=== PATIENT | female | born 1945 | race Caucasian/White ===

== ENCOUNTER → 2016-09-02 | Outpatient (CLI) | payer OTHER ==
[~2016-09-02] MED LIST: ASCA500 PO; B-CO-25 PO; CHOL100010 PO; IBUP-1427 PO; LEVO75TA5 PO; LISI-787 PO; LUTE15CA PO; MULT-506 PO; SIMV40TA2 PO; VITA400C15 PO
--- NOTE | 2016-09-02 15:03 | MAMMOGRAPHY REPORT ---
BILATERAL DIGITAL SCREENING MAMMOGRAM WITH CAD: 09/02/2016 CLINICAL HISTORY: Routine screening. Patient has no complaints. TECHNIQUE: Current study was also evaluated with a Computer Aided Detection (CAD) system. Bilatera l CC and MLO views were obtained. COMPARISON: Comparison is made to exams dated: 09/02/2015 mammogram, 08/29/2014 mammogram, 08/28/2013 ma mmogram, 08/24/2012 mammogram, 08/19/2011 mammogram, and 08/18/2010 mammogram - [facility] nt. BREAST COMPOSITION: There are scattered areas of fibroglandular density in both breasts. FINDINGS: No suspicious masses, calcifications, or areas of architectural distortion are noted in e ither breast. There has been no significant interval change compared to prior exams. Bilateral asym metries are stable, including an asymmetry seen within the right lateral anterior breast which appea rs stable compared to the 2013 exam. IMPRESSION: ACR BI-RADS CATEGORY 2: BENIGN There is no mammographic evidence of malignancy. A 1 year screening mammogram is recommended. The p atient will receive written notification of the results. Approximately 10% of breast cancers are not detected with mammography. A negative mammographic repor t should not delay biopsy if a clinically suggestive mass is present. Princess Chan M.D. /:09/02/2016 12:41:49 Web Site Manager: Gerda Cuevas M, [facility] letter sent: Normal 1/2 BI-RADS Code: ACR BI-RADS Category 2: Benign
== END | disposition home or self-care (01) ==
LOC: C.MAMM 09:07
PROVIDERS: ATTEND Internal Medicine
DX: Z12.31 Encounter for screening mammogram for malignant neoplasm of breast (principal)

== ENCOUNTER → 2016-09-30 | Outpatient (CLI) | payer OTHER ==
[2016-09-30 11:00] LABS: BASO ABS # 0.05 K/uL (0-0.2); COMPLETE YES; EOS % 2.3 %; HEMATOCRIT 40.9 % (37-47); IG% 0.4 %; LYMPH % 38.5 %; LYMPH ABS # 1.84 K/uL (1.2-3.4); MEAN CELL VOLUME 93.2 fL (80-100); MEAN CORPUSCULAR HEMOGLOBIN 30.8 pg (25-34); MEAN PLATELET VOLUME 11.1 fL (7.4-10.4); MONO % 11.9 %; NEUT % 45.9 %; PLATELET COUNT 235 K/uL (130-400); RED BLOOD COUNT 4.39 M/uL (4.2-5.4); WHITE BLOOD COUNT 4.78 K/uL (4.8-10.8)
[2016-09-30 11:10] LABS: CALCIUM 9.8 mg/dl (8.5-10.1)
[2016-09-30 11:17] LABS: ALT/SGPT 25 U/L (12-78); AST/SGOT 28 U/L (15-37); BLOOD UREA NITROGEN 23 mg/dl (7-18); CARBON DIOXIDE 28 mmol/L (21-32); CHLORIDE 103 mmol/L (98-107); CHOLESTEROL 186 mg/dl (0-200); GLUCOSE 87 mg/dl (70-99); SODIUM 138 mmol/L (136-145); TRIGLYCERIDES 51 mg/dl (0-150); VERY LOW DENSITY LIPOPROT CALC 10 mg/dl
[2016-09-30 11:20] LABS: ESTIMATED AVERAGE GLUCOSE 108 mg/dl; HA1C FLAG Normal (Normal)
[2016-09-30 11:28] LABS: CHOLESTEROL/HDL RATIO 2.5; HDL CHOLESTEROL 74 mg/dl; LDL CHOLESTEROL CALCULATED 102 mg/dl
--- NOTE | 2016-10-07 07:05 | CODING QUERY MEDICAL NECESSITY ---
CQSUPPORTING DIAGNOSIS NEEDED A supporting diagnosis is required for the test/procedure performed on this patient in order for us to be reimbursed by the patient's insurance. Please provide a supporting diagnosis for the following test/procedure listed below next to the test name along with your signature. *If there is no additional diagnosis for this patient that would support the following test/procedure please document that below next to the test/procedure. Test(s)/Procedure(s) that require a supporting diagnosis: DOS 09/30/16 BLOOD COUTS GLYCATED HEMOGLOBIN Provider Signature: Date: Thank you Sharon Siddiqui Health Information Management Once completed, please kindly fax back to [phone] For questions please call [phone]
== END | disposition home or self-care (01) ==
LOC: C.LABBC 09:09
PROVIDERS: ATTEND Internal Medicine
DX: Z11.59 Encounter for screening for other viral diseases (principal); R73.9 Hyperglycemia, unspecified

== ENCOUNTER → 2017-04-07 | Outpatient (CLI) | payer OTHER ==
[2017-04-07 10:56] LABS: BASO % 0.8 %; BASO ABS # 0.03 K/uL (0-0.2); COMPLETE YES; EOS % 2.9 %; HEMATOCRIT 39.7 % (37-47); IG% 0.3 %; LYMPH % 40.8 %; LYMPH ABS # 1.53 K/uL (1.2-3.4); MEAN CELL VOLUME 92.5 fL (80-100); MEAN CORPUSCULAR HEMOGLOBIN 31.2 pg (25-34); MEAN CORPUSCULAR HGB CONC 33.8 g/dl (32-36); MEAN PLATELET VOLUME 11.5 fL (7.4-10.4); MONO % 10.7 %; NEUT % 44.5 %; PLATELET COUNT 212 K/uL (130-400); RED BLOOD COUNT 4.29 M/uL (4.2-5.4); WHITE BLOOD COUNT 3.75 K/uL (4.8-10.8)
[2017-04-07 11:07] LABS: ESTIMATED AVERAGE GLUCOSE 103 mg/dl; HA1C FLAG Normal (Normal)
[2017-04-07 14:24] LABS: ALT/SGPT 22 U/L (12-78); BLOOD UREA NITROGEN 26 mg/dl (7-18); BUN/CREATININE RATIO 20.2 (10-20); CALCIUM 9.9 mg/dl (8.5-10.1); CARBON DIOXIDE 26 mmol/L (21-32); CHLORIDE 101 mmol/L (98-107); CHOLESTEROL 212 mg/dl (0-200); CHOLESTEROL/HDL RATIO 2.2; GLUCOSE 90 mg/dl (70-99); HDL CHOLESTEROL 96 mg/dl; LDL CHOLESTEROL CALCULATED 108 mg/dl; POTASSIUM 4.5 mmol/L (3.5-5.1); SODIUM 135 mmol/L (136-145); TRIGLYCERIDES 40 mg/dl (0-150); VERY LOW DENSITY LIPOPROT CALC 8 mg/dl
[2017-04-07 14:36] LABS: AST/SGOT 26 U/L (15-37)
[2017-04-07 17:11] LABS: URINE APPEARANCE CLEAR (CLEAR); URINE BILIRUBIN NEG (NEG); URINE COLOR YELLOW; URINE NITRITE NEG (NEG); URINE SPECIFIC GRAVITY 1.015 (1.000-1.030); UROBILINOGEN NEG (NEG)
[2017-04-07 17:13] LABS: MANUAL MICROSCOPIC REQUIRED? NO; REVIEW REQ? NO
== END | disposition home or self-care (01) ==
LOC: C.LABBC 09:24
PROVIDERS: ATTEND Internal Medicine
DX: E78.00 Pure hypercholesterolemia, unspecified (principal)

== ENCOUNTER → 2017-09-05 | Outpatient (CLI) | payer OTHER ==
--- NOTE | 2017-09-06 07:47 | MAMMOGRAPHY REPORT ---
BILATERAL DIGITAL SCREENING MAMMOGRAM TOMOSYNTHESIS WITH CAD: 09/05/2017 CLINICAL HISTORY: Routine screening. Patient has no complaints. TECHNIQUE: Breast tomosynthesis in addition to standard 2D mammography was performed. Current study was also evaluated with a Computer Aided Detection (CAD) system. COMPARISON: Comparison is made to exams dated: 09/02/2016 mammogram, 09/02/2015 mammogram, 08/29/2014 ma mmogram, 08/28/2013 mammogram, 08/24/2012 mammogram, and 08/19/2011 mammogram - [facility] er. BREAST COMPOSITION: There are scattered areas of fibroglandular density in both breasts. FINDINGS: The parenchymal pattern is unchanged. No developing mass, architectural distortion or clus ter of suspicious microcalcifications is seen in either breast. IMPRESSION: ACR BI-RADS CATEGORY 2: BENIGN There is no mammographic evidence of malignancy. A 1 year screening mammogram is recommended. The pa tient will receive written notification of the results. Approximately 10% of breast cancers are not detected with mammography. A negative mammographic report should not delay biopsy if a clinically suggestive mass is present. Petra England M.D. ay/:09/05/2017 15:31:15 Hog Worker: Tequila HERNANDEZ(Gerda)(Brit)([place]), [facility] letter sent: Normal 1/2 BI-RADS Code: ACR BI-RADS Category 2: Benign
== END | disposition home or self-care (01) ==
LOC: C.MAMM 09:12
PROVIDERS: ATTEND Internal Medicine
DX: Z12.31 Encounter for screening mammogram for malignant neoplasm of breast (principal)

== ENCOUNTER 2017-10-08 16:52 | Emergency (ER) | payer OTHER ==
[~2017-10-08] VITALS: Ht 165.1 cm; Wt 63.6 kg
[2017-10-08 16:54] VITALS: Ht 165.1 cm; Wt 63.6 kg
[2017-10-08] MEDS ORDERED: PROPARACAINE HCL 0.5% OP SOLN 15 ML BTL OP STA (17:04)
[2017-10-08] MEDS ORDERED: PROPARACAINE HCL 0.5% OP SOLN 15 ML BTL ONE (17:05)
[2017-10-08] MEDS ORDERED: ERYTHROMYCIN OP OINT 5 MG/GM 3.5 GM TUBE OP STA (17:19)
--- NOTE | 2017-10-08 17:46 | EMERGENCY ROOM VISIT NOTE ---
ED Visit Note First contact with patient: 16:59 Patient was seen by our PA/INSIDE UPHOLSTERER. I was involved in the patient's care and did evaluate the patient myself. I was involved in the care throughout the ER stay. The patient has a foreign body sensation in her right eye. It feels as if it is in the middle of the upper eyelid. She did have something fly into her eye when she was outside. On exam, even with a magnifying lens, I can find no foreign debris underneath the upper eyelid. There is no scratch on the cornea. There is a slight area of swelling to the underside of the upper eyelid where she feels the discomfort, this may be causing her irritation. She is going to be switched to erythromycin ointment. She will see her eye doctor on Tuesday. If things worsen in the meantime, she can return.
--- NOTE | 2017-10-08 17:49 | EMERGENCY ROOM VISIT NOTE ---
ED Visit Note First contact with patient: 16:59 CHIEF COMPLAINT: Foreign body sensation of the right eye HISTORY OF PRESENT ILLNESS: This 72-year-old female patient presents to the emergency department, ambulatory, complaining of pain and foreign body sensation in the right eye. The patient states she was out for a walk yesterday when she felt something fly into her right eye. She went to [employer] last evening where she had the eye anesthetized and stained with fluorescein stain. She states she was told there was no foreign body and no obvious abrasion or laceration noted. She was started on Ciloxan drops which she has been using since the visit yesterday. She states she awoke today and was not feeling any better. She notes a foreign body sensation in the middle of the upper eyelid. She has been using artificial tears and has not noted any improvement in her symptoms. There has been a constant moderate pain and irritation, and tearing in the eye. The vision has not been decreased over all. The patient does wear contacts, but did not have them in when this occurred. The patient rates the pain as 6/10. The patient has not had previous injuries to this eye. Tetanus shot is up to date. REVIEW OF SYSTEMS: A 6 system review of systems was completed with positives and pertinent negatives listed in the HPI. ALLERGIES: Sulfa MEDICATIONS: Vitamin C, vitamin D, Synthroid, Zestoretic, lutein, simvastatin PMH: Hyperlipidemia, hypertension, hypothyroidism SOCIAL HISTORY: The patient is locally with family. She denies drug, tobacco use. PHYSICAL EXAM: Vital Signs: Reviewed Nurse's notes, vital signs stable. Visual acuity 20/30 (R) 20/25 (L). GENERAL: This is a 72-year-old white, in no acute distress, but who is uncomfortable from the eye problem. Well-developed well- nourished. EYES: The pupils are equal round and reactive to light and accommodation. EOMs are full and without tenderness. There is mild watery discharge from the right eye which is minimally injected. There is no object, abrasion, or ulceration visible on the cornea. There is no foreign body visible under the eyelid after multiple attempts at lid eversion. No foreign body was seen embedded in the cornea under slit lamp exam. The cornea was clear and no hyphema was seen. No corneal abrasion or laceration noted with fluorescein uptake. EMERGENCY DEPARTMENT COURSE: I examined the patient. Alcaine 2 drops were placed in the patient's right eye. A slit lamp exam was performed as above. No foreign body noted. A moistened cotton swab was used to wipe the eye lid and superior aspect of the cornea without noticing any obvious foreign body. Fluorescein stain used and no corneal abrasion or laceration noted. Pressures obtained and were 22 on the right and 23 on the left. I discussed the case with Dr. Luna. The patient was seen and evaluated by Dr. Luna. He attempted to reevaluate the patient and repeated slit lamp examination without noting foreign body. He did note some mild inflammation of the mid upper eyelid. The patient will be switched from Ciloxan drops to erythromycin ointment to help with irritation and infection. She was encouraged to follow-up outpatient with her professional skateboarder or primary care provider, especially if no improvement in symptoms. Discharge instructions reviewed. The patient was discharged home in good condition. I attest that I have personally reviewed the patient's current medication list. Blood Pressure Screening: Patient was found to have a slightly elevated blood pressure due to circumstances. I do not believe that the patient requires hypertension monitoring. Etiologies such as conjunctivitis, corneal abrasion, uveitis, glaucoma, periorbital cellulitis, orbital cellulitis, abscess, trauma, as well as others were entertained. DIAGNOSIS: Foreign body sensation of the right eye The chart was completed utilizing [employer] Speech voice recognition software. Grammatical errors, random word insertions, pronoun errors, and incomplete sentences are an occasional consequence of this system due to software limitations, ambient noise, and hardware issues. Any formal questions or concerns about the content, text, or information contained within the body of this dictation should be directly addressed to the provider for clarification. Problem List Medical Problems: (1) Bowel obstruction Status: Resolved (2) Lteicia's thyroiditis Status: Chronic (3) Hypertension Status: Chronic Surgical Problems: (1) History of nephrectomy Status: Resolved (2) Tubal ligation status Status: Resolved Current/Historical Medications Scheduled Ascorbic Acid (Vitamin C), 500 MG PO QAM B-Complex W/ Folic Acid (Super B Complex Maxi), 1 TAB PO QAM Cholecalciferol (Vitamin D), 500 MG PO QAM Levothyroxine Sodium (Levothyroxine Sodium), 75 MCG PO QAM Lisinopril/Hctz (Zestoretic 20MG/12.5MG), 1 TAB PO QAM Lutein-Zeaxanthin (Lutein), 1 CAP PO QPM Multivitamin (Multivitamin), 1 TAB PO QPM Simvastatin (Zocor), 40 MG PO QPM Tocopheryl Acet,Dl-Alpha (Vitamin E), 400 INTER.UNIT PO QAM Scheduled PRN Ibuprofen Tab (Motrin), 600 MG PO Q6H PRN for Pain Allergies Coded Allergies: POLLEN (Verified Allergy, Unknown, ., 11/15/14) Sulfa Drugs (Unverified Allergy, Unknown, ., 11/15/14) Vital Signs Date Time Temp Pulse Resp B/P (MAP) Pulse Ox O2 Delivery O2 Flow Rate FiO2 10/08/17 17:55 36.6 118 18 146/87 99 10/08/17 16:54 36.6 118 18 146/87 99 Room Air Medications Administered Medications (Trade) Dose Ordered Sig/Tayler Route Start Time Stop Time Status Last Admin Dose Admin Proparacaine HCl (Alcaine 0.5% Oph Soln) 2 drops NOW STAT OP 10/08/17 17:04 10/08/17 17:05 DC 10/08/17 17:08 2 DROPS Erythromycin (Erythromycin Oph Oint) 1 appln NOW STAT OP 10/08/17 17:19 10/08/17 17:21 DC 10/08/17 17:44 1 APPLN Departure Information Impression Primary Impression: Sensation of foreign body in eye Dispostion Home / Self-Care Condition GOOD Referrals Rajinder Armendariz M.D. (PCP) Shan Banuelos MD Patient Instructions ED Foreign Body Cornea, [facility] Additional Instructions You have been treated in the Emergency Department today for a foreign body sensation of the right eye. As discussed, there is no obvious foreign body noted even after lid eversion and observation under a microscope. There was a small area of inflammation of the right upper lid, I suspect this is the cause of your symptoms. You have been prescribed Erythromycin Opthalmic ointment. Use this in place of Skelaxin drops. This is an antibiotic ointment which will help prevent an infection from developing in your affected eye. You should apply a 1 cm ribbon of the ointment to the lower part of the affected eye up to 6 times per day for the next 10 days. For pain control, you can use the following [id number] medicines (if >12 yo): Ibuprofen(Motrin, Advil) may be used for fever or pain. Use 400mg every six hours as needed. Take with food. Avoid using more than 2400mg in a 24 hour period. Do not use 2400mg per day for more than three consecutive days without physician direction. Prolonged inappropriate use can lead to stomach upset or ulcers. (AND/OR) Acetaminophen(Tylenol) may be used for fever or pain. Use 1000mg every six hours as needed. Avoid using more than 3000mg in a 24 hour period. You should relax in a quiet, dark place for the rest of the day. You should wear sunglasses while outside for the next few days until your eyes are not as sensitive to the light. You should schedule a follow-up appointment in 2-3 days with your Primary Care Provider or established Eye Doctor (Respiratory Therapy Director) for further evaluation and treatment of your symptoms if no improvement by Tuesday. Return to the Emergency Department if your current symptoms worsen despite treatment course outlined above, or if you develop any of the following symptoms : intractable pain, visual disturbances, loss of vision, increased redness, swelling, drainage, or if you develop a fever.
[2017-10-08 17:55] VITALS: BP 146/87; PULSE 118; TEMP 36.6; O2SAT 99
== END 2017-10-08 17:56 | disposition home or self-care (01) ==
LOC: C.EDB 16:53 → C.EDD 17:56
DX: H57.8 Other specified disorders of eye and adnexa (principal); E78.5 Hyperlipidemia, unspecified; I10 Essential (primary) hypertension; E03.9 Hypothyroidism, unspecified; Z79.899 Other long term (current) drug therapy; Z88.2 Allergy status to sulfonamides; Z88.0 Allergy status to penicillin

== ENCOUNTER 2022-07-14 12:50 | Inpatient (IN) ==
[2022-07-14] MEDS ORDERED: MoRPHine SULFATE 4 MG/ML 1 ML CARP\\VIAL ONE (12:57)
[2022-07-14] MEDS ORDERED: MoRPHine SULFATE 4 MG/ML 1 ML CARP\\VIAL IV STA (12:58)
[2022-07-14] MEDS ORDERED: fentaNYL citrate 100 MCG/2 ML VIAL IV STA ×2 (13:08→13:47)
[2022-07-14] MEDS ORDERED: fentaNYL citrate 100 MCG/2 ML VIAL ONE (13:09)
--- NOTE | 2022-07-14 13:17 | Emergency Department Note ---
Impression & Plan Fall, Closed fracture of left hip ED Provider Note Provider: Isauro Michel MD DATE OF SERVICE: 07/14/2022 CHIEF COMPLAINT: Fall, left hip pain HISTORY OF PRESENT ILLNESS: Patient is a 76-year-old female history of thyroid dysfunction, CKD, osteoporosis, hypertension presenting today after a slip and fall in the icy weather outside today onto her left hip. Was not on the ground a significant amount of time but unable to ambulate after the fall due to severe pain and deformity to left hip. No history of injury he reported. Received some fentanyl for EMS by the report without significant abdominal pain. Did also receive some Zofran. Patient here denies striking her head or loss co nscious. Denies headache or neck pain. Denies chest pain shortness of breath or abdominal pain. Reports severe pain in the left hip but denies significant numbness or tingling down her left leg otherwise. Denies injury to other extremities or her right leg or hip. Denies use of anticoagulants or aspirin. PAST MEDICAL HISTORY: As noted above MEDICATIONS: Reviewed home medications SOCIAL HISTORY: Retired nurse PHYSICAL EXAM: GENERAL: alert and oriented appears uncomfortable on stretcher Head: normocephalic and atraumatic EYES: No injection, discharge or icterus. PERRL, EOMI. NECK: Trachea midline. Supple without midline cervical tenderness ENT: Mucous membranes pink and moist. LUNGS: Airway patent. No retractions. Breath sounds clear with good air entry bilaterally. HEART: Regular rate and rhythm. No chest wall tenderness ABDOMEN: Soft and non-tender, without guarding or rebound. SKIN: Acyanotic, warm, dry, without rashes EXTREMITIES: Without swelling, tenderness or deformity except: Significant pain and tenderness with any range of motion of the left hip. Shortening and external rotation of the left lower leg noted. Intact left DP pulse. Intact sensation left foot. No significant tenderness left foot, ankle, lower leg, or knee. NEUROLOGICAL: No focal deficits except limited ROM of the left hip due to pain here. No aphasia. No facial droop or slurred speech. Intact normal gross sensation. EK bpm normal sinus rhythm. No PVC or PAC. No acute ST segment elevation or depression some slight nonspecific anterior T wave changes. QTc 441. GCS 15. Patient's laboratory studies and imaging reviewed. Differential includes Fracture, subluxation, dislocation, contusion, ligamentous injury, neurovascular, compartment syndrome, rhabdomyolysis, closed head injury as well as other pathologies. IMPRESSION/MEDICAL DECISION MAKING: Patient with mechanical slip and fall now with significant left hip pain and some deformity concern for fracture. X-rays obtained. Given additional pain medication here as her pain is fairly severe. Appears neurovascularly intact in left lower extremity. Denies striking her head or use of other high risk anticoagulants or blood thinners. Do not believe we need cervical spine imaging based on Nexus criteria. Doubt intracranial bleed or injury as she did not strike her head. Basic labs obtained. No severe electrolyte abnormality noted with a negative COVID. No significant anemia or leukocytosis. X-ray confirms intertrochanteric left hip fracture. Difficult pain control requiring multiple dose medications. Given IV Tylenol addition of narcotics. Discussed with her further care here at the hospital. Discussed with orthopedicspatient requested [facility]. Hospitalist consulted. DIAGNOSIS: Fall, left hip fracture DISPOSITION: Hospitalist will evaluate Patient was agreeable with this plan. Past Med/Surg History Medical History Chronic kidney disease (CKD) stage G3b/A1, moderately decreased glomerular filtration rate (GFR) between 30-44 mL/min/1.73 square meter and albuminuria creatinine ratio less than 30 mg/g Leticia's thyroiditis Hypothyroidism Lumbar spondylosis Myofascial pain Osteoporosis Ovarian cyst Rotator cuff syndrome Sacroiliitis Solitary thyroid nodule Surgical History History of nephrectomy LEFT PELVIC NEPHRECTOMY History of oophorectomy History of surgery LYSIS OF ADHESIONS Tubal ligation status Family History Mother Hypertension Heart disease Myocardial infarction Brother Hearing loss Myocardial infarction Prostate cancer Pancreatic cancer Other No family history of allergies No family history of bleeding disorder Denies family history of Ovarian cancer Diabetes Breast cancer Lung cancer Colorectal cancer Cancer Stroke Asthma Social History Smoking Status: Never smoker Tobacco Type: Cigarettes Cigarettes Per Day: 1/2 pack per day - off/on for several years; Second Hand Exposure: No; Hx Alcohol Use: Yes Alcohol type: beer Alcohol Intake Frequency: 2-4 x/Month Alcohol Intake Frequency Comment: social Hx Substance Use: No Preferred Language: Irish Communication Ability: Effective Visual Impairment: Limited Hearing Ability: Normal Hide Examiner Required: Yes Beliefs That Will Affect Care: None marital status: Current Living Situation: Spouse current occupational status: retired current occupation: retired RN How many Children do You have: 2 Other Information That Helps Us Care for You: No Feels Safe at Home: Yes Safety Concerns: Feels Safe At This Time Childhood Exposure to Second-Hand Smoke: No caffeine: Yes Dental Care, Regularly: Yes Physical Activity Frequency: 3-4 Times per Week Seatbelt Use: always Sunscreen Use: No Assistive Devices: Glasses Allergies Allergies Allergy/AdvReac Type Severity Reaction Status Date / Time Sulfa (Sulfonamide Allergy Unknown . Verified 06/21/22 15:00 Antibiotics) secobarbital [From Seconal] Allergy Verified 06/21/22 15:00 mannitol [From Reclast] AdvReac Intermediate fever, Verified 06/21/22 15:00 bone pain, headache water for injection,sterile AdvReac Intermediate fever, Verified 06/21/22 15:00 [From Reclast] bone pain, headache zoledronic acid AdvReac Intermediate fever, Verified 06/21/22 15:00 [From Reclast] bone pain, headache Home Meds Home Medications Medication Instructions Recorded Confirmed ascorbic acid (vitamin C) 500 mg 500 mg PO DAILY 01/16/19 07/14/22 tablet (Vitamin C) cholecalciferol (vitamin D3) 25 1,000 units PO DAILY 01/16/19 07/14/22 mcg (1,000 unit) capsule lutein 20 mg capsule 20 mg PO DAILY 01/16/19 07/14/22 multivitamin (Daily Multi-Vitamin 1 tab PO DAILY 01/16/19 07/14/22 tablet) vitamin B complex 1 tab PO DAILY 01/16/19 07/14/22 vitamin E (dl, acetate) 180 mg 400 units PO DAILY 01/23/19 07/14/22 (400 unit) capsule meclizine 25 mg tablet 25 mg PO Q6H PRN dizziness 01/02/20 07/14/22 Previous Rx's Medication Instructions Recorded atorvastatin 40 mg tablet 40 mg PO QPM #90 tabs 03/12/22 levothyroxine 75 mcg tablet 75 mcg PO DAILY #90 tabs 03/12/22 lisinopril 20 1 tab PO DAILY #90 tabs 03/12/22 mg-hydrochlorothiazide 12.5 mg tablet alprazolam 0.25 mg tablet 0.25 mg PO DAILY PRN anxiety #30 05/10/22 tabs Results & Data (ED) Vital Signs Vital Signs - 24 hr 07/14/22 13:16 07/14/22 12:40 07/14/22 12:40 Temperature 36.5 C Temperature Source Oral Pulse Rate 70 75 Pulse Rate from SpO2 Sensor Pulse Rhythm Regular Pulse Strength Normal Respiratory Rate 22 24 Respiratory Effort / Characteristics Non-Labored Non-Labored Respiratory Depth Normal Normal Respiratory Pattern Regular Regular Blood Pressure 125/73 Blood Pressure Mean 90 Pulse Oximetry 95 95 Oxygen Delivery Method Room Air Oxygen Flow Rate Sepsis Recent Fever Within 48 Hours No Sepsis New/Unexplained Change in Mental Status N/A Sepsis Action Taken by Nursing No Action Required 07/14/22 13:14 07/14/22 13:36 07/14/22 13:36 Temperature Temperature Source Pulse Rate 71 69 Pulse Rate from SpO2 Sensor 71 64 Pulse Rhythm Pulse Strength Respiratory Rate 20 18 Respiratory Effort / Characteristics Respiratory Depth Respiratory Pattern Blood Pressure 116/71 Blood Pressure Mean 86 Pulse Oximetry 85 L 97 Oxygen Delivery Method Room Air Nasal Cannula Oxygen Flow Rate 2 Sepsis Recent Fever Within 48 Hours Sepsis New/Unexplained Change in Mental Status Sepsis Action Taken by Nursing 07/14/22 14:00 07/14/22 14:00 07/14/22 15:00 Temperature Temperature Source Pulse Rate 67 Pulse Rate from SpO2 Sensor 68 67 Pulse Rhythm Pulse Strength Respiratory Rate 16 Respiratory Effort / Characteristics Respiratory Depth Respiratory Pattern Blood Pressure 110/66 Blood Pressure Mean 80 Pulse Oximetry 98 97 Oxygen Delivery Method Nasal Cannula Nasal Cannula Oxygen Flow Rate 2 2 Sepsis Recent Fever Within 48 Hours Sepsis New/Unexplained Change in Mental Status Sepsis Action Taken by Nursing 07/14/22 15:01 07/14/22 15:01 07/14/22 15:30 Temperature Temperature Source Pulse Rate 64 Pulse Rate from SpO2 Sensor 64 Pulse Rhythm Pulse Strength Respiratory Rate 12 Respiratory Effort / Characteristics Respiratory Depth Respiratory Pattern Blood Pressure 95/63 L 100/57 L Blood Pressure Mean 73 71 Pulse Oximetry 97 Oxygen Delivery Method Nasal Cannula Oxygen Flow Rate 2 Sepsis Recent Fever Within 48 Hours Sepsis New/Unexplained Change in Mental Status Sepsis Action Taken by Nursing 07/14/22 15:30 Temperature Temperature Source Pulse Rate 85 Pulse Rate from SpO2 Sensor 86 Pulse Rhythm Pulse Strength Respiratory Rate 18 Respiratory Effort / Characteristics Respiratory Depth Respiratory Pattern Blood Pressure Blood Pressure Mean Pulse Oximetry 97 Oxygen Delivery Method Nasal Cannula Oxygen Flow Rate 2 Sepsis Recent Fever Within 48 Hours Sepsis New/Unexplained Change in Mental Status Sepsis Action Taken by Nursing Laboratory Data 07/14/22 13:23 07/14/22 13: Lab Results 07/14/22 07/14/22 07/14/22 Range/Units 13: 13: 13: WBC 7.19 (4.8-10.8) K/ul RBC 4.35 (4.20-5.40) M/uL Hgb 13.7 (12.0-16.0) g/dl Hct 40.8 (37.0-47.0) % MCV 93.8 (80.0-100.0) fL MCH 31.5 (25.0-34.0) pg MCHC 33.6 (32.0-36.0) g/dL RDW Std Deviation 42.7 (36.4-46.3) fL RDW Coeff of Mikayla 12.3 (11.5-14.5) % Plt Count 196 (130-400) K/uL MPV 11.5 (9.4-12.4) fL Immature Gran % (Auto) 0.6 % Neut % (Auto) 61.8 % Lymph % (Auto) 28.0 % Summers % (Auto) 7.9 % Eos % (Auto) 1.0 % Baso % (Auto) 0.7 % Neut # (Auto) 4.45 (1.40-6.50) K/uL Lymph # (Auto) 2.01 (1.2-3.4) K/uL Summers # (Auto) 0.57 (0.11-0.59) K/uL Eos # (Auto) 0.07 (0-0.50) K/uL Baso # (Auto) 0.05 (0-0.2) K/uL Immature Gran # (Auto) 0.04 (0.01-0.20) K/uL PT 10.8 (9.0-12.0) Seconds INR 1.0 (0.9-1.1) Sodium 134 L (136-145) mmol/L Potassium 4.2 (3.5-5.1) mmol/L Chloride 102 (98-107) mmol/L Carbon Dioxide 25 (21-32) mmol/L Anion Gap 7 (3-11) BUN 26 H (6-23) mg/dl Creatinine 1.15 (0.6-1.2) mg/dl Est Cr Clr Drug Dosing 36.5 ml/min Est GFR ( Amer) 53.9 ml/min Est GFR (Non-Af Amer) 46.5 ml/min BUN/Creatinine Ratio 22.6 H (10-20) Glucose 130 H (70-99(Fasting)) mg/dl Calcium 10.0 (8.5-10.1) mg/dl Total Bilirubin 0.6 (0.2-1.0) mg/dl AST 41 H (13-39) U/L ALT 31 (7-52) U/L Alkaline Phosphatase 83 (34-104) U/L Total Protein 7.8 (6.0-8.3) gm/dl Albumin 4.5 (3.4-5.0) gm/dl Globulin 3.3 (2.5-4.0) gm/dl Albumin/Globulin Ratio 1.4 (0.9-2) SARS-CoV-2, RNA, NAAT (NEGATIVE) 07/14/22 Range/Units 13:41 WBC (4.8-10.8) K/ul RBC (4.20-5.40) M/uL Hgb (12.0-16.0) g/dl Hct (37.0-47.0) % MCV (80.0-100.0) fL MCH (25.0-34.0) pg MCHC (32.0-36.0) g/dL RDW Std Deviation (36.4-46.3) fL RDW Coeff of Mikayla (11.5-14.5) % Plt Count (130-400) K/uL MPV (9.4-12.4) fL Immature Gran % (Auto) % Neut % (Auto) % Lymph % (Auto) % Summers % (Auto) % Eos % (Auto) % Baso % (Auto) % Neut # (Auto) (1.40-6.50) K/uL Lymph # (Auto) (1.2-3.4) K/uL Summers # (Auto) (0.11-0.59) K/uL Eos # (Auto) (0-0.50) K/uL Baso # (Auto) (0-0.2) K/uL Immature Gran # (Auto) (0.01-0.20) K/uL PT (9.0-12.0) Seconds INR (0.9-1.1) Sodium (136-145) mmol/L Potassium (3.5-5.1) mmol/L Chloride (98-107) mmol/L Carbon Dioxide (21-32) mmol/L Anion Gap (3-11) BUN (6-23) mg/dl Creatinine (0.6-1.2) mg/dl Est Cr Clr Drug Dosing ml/min Est GFR ( Amer) ml/min Est GFR (Non-Af Amer) ml/min BUN/Creatinine Ratio (10-20) Glucose (70-99(Fasting)) mg/dl Calcium (8.5-10.1) mg/dl Total Bilirubin (0.2-1.0) mg/dl AST (13-39) U/L ALT (7-52) U/L Alkaline Phosphatase (34-104) U/L Total Protein (6.0-8.3) gm/dl Albumin (3.4-5.0) gm/dl Globulin (2.5-4.0) gm/dl Albumin/Globulin Ratio (0.9-2) SARS-CoV-2, RNA, NAAT NEGATIVE (NEGATIVE) Administered Medications Acetaminophen (Acetaminophen 325 Mg Tab) 650 mg PO Q6H [facility] Stop: 08/13/22 16:59 Last Admin: 07/14/22 17:59 Dose: 650 mg Documented By: DEEJAY Cyclobenzaprine HCl (Cyclobenzaprine Hcl 10 Mg Tab) 10 mg PO TID [facility] Stop: 08/13/22 16:29 Last Admin: 07/14/22 17:38 Dose: 10 mg Documented By: DEEJAY Lidocaine (Lidocaine 5% 1 Patch) 1 patch TD QAM [facility] Stop: 08/13/22 16:59 Last Admin: 07/14/22 17:59 Dose: 1 patch Documented By: DEEJAY Morphine Sulfate (Morphine Sulfate 2 Mg/Ml Carp) 2 mg IV Q4H PRN PRN Reason: Pain (6+) Stop: 07/28/22 15:47 Last Admin: 07/14/22 17:38 Dose: 2 mg Documented By: DEEJAY Discontinued Medications Fentanyl Citrate (Fentanyl Citrate 100 Mcg/2 Ml Vial) 100 mcg IV NOW STA Stop: 07/14/22 13:09 Last Admin: 07/14/22 13:15 Dose: 100 mcg Documented By: AUGUSTO Fentanyl Citrate (Fentanyl Citrate 100 Mcg/2 Ml Vial) Confirm Administered Dose 100 mcg .ROUTE .STK-MED ONE Stop: 07/14/22 13:10 Last Admin: 07/14/22 13:15 Dose: Not Given Documented By: AUGUSTO Fentanyl Citrate (Fentanyl Citrate 100 Mcg/2 Ml Vial) 100 mcg IV NOW STA Stop: 07/14/22 13:48 Last Admin: 07/14/22 13:55 Dose: 100 mcg Documented By: MELINA Lorazepam (Lorazepam 2 Mg/1 Ml Vial) 1 mg IV ONCE ONE Stop: 07/14/22 17:11 Last Admin: 07/14/22 17:43 Dose: 1 mg Documented By: DEEJAY Morphine Sulfate (Morphine Sulfate 4 Mg/Ml 1 Ml Carp\Vial) Confirm Administered Dose 4 mg .ROUTE .[facility] ONE Stop: 07/14/22 12:58 Last Admin: 07/14/22 13:14 Dose: Not Given Documented By: AUGUSTO Morphine Sulfate (Morphine Sulfate 4 Mg/Ml 1 Ml Carp\Vial) 4 mg IV NOW STA Stop: 07/14/22 12:59 Last Admin: 07/14/22 13:14 Dose: 4 mg Documented By: AUGUSTO Morphine Sulfate (Morphine Sulfate 2 Mg/Ml Carp) 2 mg IV NOW STA Stop: 07/14/22 14:37 Last Admin: 07/14/22 14:54 Dose: 2 mg Documented By: VELVET Ondansetron HCl (Ondansetron Inj 2 Mg/Ml 2 Ml Vial) 4 mg IV NOW STA Stop: 07/14/22 14:37 Last Admin: 07/14/22 14:54 Dose: 4 mg Documented By: VELVET Imaging Data Radiologist's Impression: Chest X-Ray 07/14/22 12:58 XR chest 1V not portable HISTORY: Left hip fracture. Preop. fall COMPARISON: Chest 12/17/2013. FINDINGS: Mild elevation of the right hemidiaphragm which may be positional. The lungs are clear. The cardiac silhouette is top normal in size. This mildly tortuous thoracic aorta. No pleural effusions. No pneumothorax. No evidence for pulmonary edema. IMPRESSION: No acute process. ACT 112: Negative or not required by law. Electronically signed by: Too Brito M.D. 07/14/2022 3:50 PM Hip/Pelvis X-Ray 07/14/22 12:58 XR hip LT 2V w pelvis CLINICAL HISTORY: Left hip pain following fall. COMPARISON: CT of the abdomen and pelvis March 22, 2014. FINDINGS: Sacroiliac joints and symphysis pubis are intact. Note is made of an acute comminuted and displaced intertrochanteric fracture of the left femur. There is mild subtrochanteric extension. Fracture is angulated. No additional acute fractures are present. IMPRESSION: Acute comminuted displaced intertrochanteric fracture of the left femur. ACT 112: Negative or not required by law. Electronically signed by: Juan Carlos Carreno M.D. 07/14/2022 2:26 PM Discharge Plan Visit Data Chief Complaint: Hip Pain Stated Complaint: FALL, L HIP PAIN ED Provider: Isauro Michel Discharge Problem: Fall, Closed fracture of left hip Patient Disposition: Admitted As Inpatient Discharge Instructions Interventions: ED Discharge Assessment Last Done: 07/14/22 16:56 Fall Qualifiers: Encounter type: initial encounter Qualified Code(s): W19.XXXA - Unspecified fall, initial encounter Closed fracture of left hip Qualifiers: Encounter type: initial encounter Qualified Code(s): S72.002A - Fracture of unspecified part of neck of left femur, initial encounter for closed fracture
[2022-07-14 14:07] LABS: Albumin Globulin Ratio 1.4 (0.9-2); Albumin Level 4.5 gm/dl (3.4-5.0); BUN Creatinine Ratio 22.6 (10-20); Basophils # (auto) 0.05 K/uL (0-0.2); Basophils % (auto) 0.7 %; Bilirubin,Total 0.6 mg/dl (0.2-1.0); Creatinine Clr Calc Pharmacy 36.5 ml/min; Eosinophils # (auto) 0.07 K/uL (0-0.50); Est GFR (African American) 53.9 ml/min; Est GFR (Non-African American) 46.5 ml/min; Globulin 3.3 gm/dl (2.5-4.0); Hematocrit (blood only) 40.8 % (37.0-47.0); Hemoglobin 13.7 g/dl (12.0-16.0); Immature Granulocytes # (auto) 0.04 K/uL (0.01-0.20); Immature Granulocytes % (auto) 0.6 %; Lymphocytes # (auto) 2.01 K/uL (1.2-3.4); Mean Corpuscular Hemoglobin 31.5 pg (25.0-34.0); Mean Corpuscular Hgb Conc 33.6 g/dL (32.0-36.0); Mean Corpuscular Volume 93.8 fL (80.0-100.0); Mean Platelet Volume 11.5 fL (9.4-12.4); Monocytes # (auto) 0.57 K/uL (0.11-0.59); Monocytes % (auto) 7.9 %; Neutrophils # (auto) 4.45 K/uL (1.40-6.50); Neutrophils % (auto) 61.8 %; Platelet Count 196 K/uL (130-400); Potassium 4.2 mmol/L (3.5-5.1); RDW Coefficient of Variation 12.3 % (11.5-14.5); RDW Standard Deviation 42.7 fL (36.4-46.3); Red Blood Count 4.35 M/uL (4.20-5.40); Total Protein 7.8 gm/dl (6.0-8.3); White Blood Count 7.19 K/ul (4.8-10.8)
[2022-07-14 14:21] LABS: Prothrombin Time 10.8 Seconds (9.0-12.0)
--- NOTE | 2022-07-14 14:28 | XRay Report ---
XR hip LT 2V w pelvis CLINICAL HISTORY: Left hip pain following fall. COMPARISON: CT of the abdomen and pelvis March 22, 2014. FINDINGS: Sacroiliac joints and symphysis pubis are intact. Note is made of an acute comminuted and displaced intertrochanteric fracture of the left femur. There is mild subtrochanteric extension. Frac ture is angulated. No additional acute fractures are present. IMPRESSION: Acute comminuted displaced intertrochanteric fracture of the left femur. ACT 112: Negative or not required by law. Electronically signed by: Juan Carlos Carreno M.D. 07/14/2022 2:26 PM
[2022-07-14] MEDS ORDERED: MoRPHine SULFATE 2 MG/ML CARP IV STA (14:36)
[2022-07-14] MEDS ORDERED: ONDANSETRON INJ 2 MG/ML 2 ML VIAL IV STA ×2 (14:36→20:53)
[2022-07-14] MEDS ORDERED: MAGNESIUM HYDROXIDE SUSP 30 ML UDC PO PRN (15:35)
[2022-07-14] MEDS ORDERED: bisacodyL 10 MG SUPP PR PRN (15:35)
[2022-07-14] MEDS ORDERED: NALOXONE HCL 0.4 MG/1 ML VIAL/CARP IV PRN (15:35)
--- NOTE | 2022-07-14 15:36 | History & Physical Report ---
Date of Service July 14, 2022 Assessment & Plan (1) Closed fracture of left hip: Plan: -Admit to med/surge -The patient is currently afebrile, hemodynamically stable and stable on RA -The patient sustained a mechanical fall on the ice/slush in the [employer] lot earlier today -No other acute injuries and no concerning symptoms prior to her fall to suggest another etiology -The patient was evaluated by Orthopedics who will take her to the OR tomorrow -Discussed applying Evans's traction with the patient and orthopedics due to her severe muscle spasms and discomfort, both are in agreement with trying -Will give the patient 1mg IV ativan and IV morphine prior to applying and will coordinate with the nursing staff -Continue pain control with the following: >PO tylenol 650 mg q6h scheduled >Lidocaine patch and ice >Flexeril 10 mg PO TID >Morphine 2 mg IV q4h prn pain 6+ -Will make her NPO at midnight -Will start with BL SCDs for DVT PPX -AM CBC, CMP, Mag, PT/INR (2) Heart murmur: Plan: -Patient noted to have a 3/6 systolic murmur on exam -Denies a previous history of heart murmur -Will obtain a TTE while admitted for further evaluation (3) Hypothyroidism: Plan: -Continue levothyroxine (4) Hypercholesterolemia: Plan: -Continue statin (5) Hypertension: Plan: -Stable -Had her dose of Lisinopril-HCTZ today -Will hold her am dose tomorrow to avoid hypotension during the procedure (6) Benign paroxysmal positional vertigo: Plan: -Will hold prn meclizine for now to avoid over-sedation Plan The patient was discussed with Dr. Todd at the time of the admission History of Present Illness Chief Complaint: Fall, left hip pain Primary Care Provider: Ashly Tello MD Asuncion is a 76 year old female with a PMH significant for hypothyroidism, HTN, BPPV, hyperlipidemia, anxiety, and stage 3 CKD who presented to the [facility] ED on 07/14/22 with a chief complaint of fall and left hip pain. In the ED the patient was found to be afebrile, hemodynamically stable, and stable on RA. Labs were remarkable for a CBC WNL, stable cr at 1.15, sodium of 134 otherwise stable electrolytes, AST of 41 otherwise stable LFTs, and covid negative. Xray of the left hip/pelvis was read as "Acute comminuted displaced intertrochanteric fracture of the left femur.". Chest xray was read as "No acute process.". Prior to admission the patient was given 6 mg total of IV morphine, 200 mcg total of IV fentanyl, and 4mg I V zofran. Orthopedics was consulted by the ED and will take the patient to the OR tomorrow. At the time of the exam the patient was lying in bed and in obvious discomfort because of her left hip and leg pain with her sitting bedside. They state that they drove to [place] to go grocery shopping. The patient stepped out of the car and slipped on the slush/ice landing on her right side. She denies having lightheadedness, dizziness, chest pain, palpitations, prior to or after her fall. She denies hitting her head or losing consciousness with her fall. Despite landing on her right side she experienced significant left hip pain. She has otherwise been in her normal state of health. She is currently unable to move her lower extremities without experiencing significant left hip and leg pain but does have intact sensation and motor function. She denies any head, neck, back, and other extremity pain. She wishes to be a Full code and for her Son to make medical decisions for her if she could not make them herself. When asked, she denies being told previously that she has a heart murmur. Please refer to Dr. Todd's attestation for any changes to the treatment plan Allergies Allergy/AdvReac Type Severity Reaction Status Date / Time Sulfa (Sulfonamide Allergy Unknown . Verified 06/21/22 15:00 Antibiotics) secobarbital [From Seconal] Allergy Verified 06/21/22 15:00 mannitol [From Reclast] AdvReac Intermediate fever, Verified 06/21/22 15:00 bone pain, headache water for injection,sterile AdvReac Intermediate fever, Verified 06/21/22 15:00 [From Reclast] bone pain, headache zoledronic acid AdvReac Intermediate fever, Verified 06/21/22 15:00 [From Reclast] bone pain, headache Home Medications Medication Instructions Recorded Confirmed Type ascorbic acid (vitamin C) 500 mg 500 mg PO DAILY 01/16/19 07/14/22 History tablet (Vitamin C) cholecalciferol (vitamin D3) 25 1,000 units PO DAILY 01/16/19 07/14/22 History mcg (1,000 unit) capsule lutein 20 mg capsule 20 mg PO DAILY 01/16/19 07/14/22 History multivitamin (Daily Multi-Vitamin 1 tab PO DAILY 01/16/19 07/14/22 History tablet) vitamin B complex 1 tab PO DAILY 01/16/19 07/14/22 History vitamin E (dl, acetate) 180 mg 400 units PO DAILY 01/23/19 07/14/22 History (400 unit) capsule meclizine 25 mg tablet 25 mg PO Q6H PRN dizziness 01/02/20 07/14/22 History atorvastatin 40 mg tablet 40 mg PO QPM #90 tabs 03/12/22 07/14/22 Rx levothyroxine 75 mcg tablet 75 mcg PO DAILY #90 tabs 03/12/22 07/14/22 Rx lisinopril 20 1 tab PO DAILY #90 tabs 03/12/22 07/14/22 Rx mg-hydrochlorothiazide 12.5 mg tablet alprazolam 0.25 mg tablet 0.25 mg PO DAILY PRN anxiety #30 05/10/22 07/14/22 Rx tabs acetaminophen 500 mg tablet 1,000 mg PO Q8H PRN pain #60 tabs 07/19/22 Rx (Tylenol Extra Strength) aspirin 81 mg tablet,delayed 81 mg PO BID #60 tabs 07/19/22 Rx release cyclobenzaprine 10 mg tablet 10 mg PO TID #60 tabs 07/19/22 Rx lidocaine 5 % topical patch 1 patch transdermal QAM #15 ea 07/19/22 Rx lisinopril 20 1 tab PO QAM #30 tabs 07/19/22 Rx mg-hydrochlorothiazide 12.5 mg tablet naloxone 0.4 mg/mL injection 0.1 mg (0.25 mL) IV UD PRN opioid 07/19/22 Rx solution reversal #10 mL oxycodone 5 mg tablet 5 - 10 mg PO Q4H PRN pain #30 tabs 07/19/22 Rx Past Med/Surg History Medical History Chronic kidney disease (CKD) stage G3b/A1, moderately decreased glomerular filtration rate (GFR) between 30-44 mL/min/1.73 square meter and albuminuria creatinine ratio less than 30 mg/g Leticia's thyroiditis Hypothyroidism Lumbar spondylosis Myofascial pain Osteoporosis Ovarian cyst Rotator cuff syndrome Sacroiliitis Solitary thyroid nodule Surgical History History of nephrectomy LEFT PELVIC NEPHRECTOMY History of oophorectomy History of surgery LYSIS OF ADHESIONS Tubal ligation status Family History Mother Hypertension Heart disease Myocardial infarction Brother Hearing loss Myocardial infarction Prostate cancer Pancreatic cancer Other No family history of allergies No family history of bleeding disorder Denies family history of Ovarian cancer Diabetes Breast cancer Lung cancer Colorectal cancer Cancer Stroke Asthma Social History Smoking Status: Never smoker Tobacco Type: Cigarettes Cigarettes Per Day: 1/2 pack per day - off/on for several years; Second Hand Exposure: No; Hx Alcohol Use: Yes Alcohol type: beer Alcohol Intake Frequency: 2-4 x/Month Alcohol Intake Frequency Comment: social Hx Substance Use: No Preferred Language: Welsh Communication Ability: Effective Visual Impairment: Limited Hearing Ability: Normal [employer] Required: Yes Beliefs That Will Affect Care: None marital status: Current Living Situation: Spouse current occupational status: retired current occupation: retired RN How many Children do You have: 2 Feels Safe at Home: Yes Childhood Exposure to Second-Hand Smoke: No caffeine: Yes Dental Care, Regularly: Yes Physical Activity Frequency: 3-4 Times per Week Seatbelt Use: always Sunscreen Use: No Assistive Devices: Cane and Walker Review of Systems Review of Systems: Denies current fever, chills, headache, changes in vision, hearing, taste, and smell, chest pain, SOB, cough, abdominal pain, vomiting, diarrhea, hematemesis, melena, dysuria, hematuria All systems have been reviewed and are otherwise negative. Physical Exam Physical Exam: Physical Exam: General: In moderate distress due to left hip pain, stated age, well- nourished, good hygiene HEENT: Normocephalic, atraumatic, no scleral icterus, pupils around round, symmetrical, and reactive to light, moist mucus membranes, trachea midline, no thyromegaly Chest/Pulm: No respiratory distress, symmetrical chest expansion, clear breath sounds throughout Cardiac: RRR, systolic murmur noted Abdomen: Negative for ascites and bruising, normoactive bowel sounds, soft, non-tender to palpation throughout Musculoskeletal: Patient with LLE currently shortened and externally rotated, left hip currently swollen and with significant visible muscle spasms overlying the injury site Extremities: Radial, dorsalis pedis, and posterior tibial pulses are intact and symmetrical, no edema noted in the BL LE's Skin: Warm, dry, no rashes , lesions, or scars noted Neuro: Alert and oriented to person, place, month, year, and president, no focal defects, CN II-XII tested and intact, no tremors noted Psych: In moderate distress, anxious but cooperative during the exam Results & Data Results & Data ([facility]) Vital Signs (Past 12 Hours) Vital Signs Temp Pulse Resp BP Pulse Ox O2 Del Method 07/14/22 12:40 24 95 07/14/22 12:40 36.5 C 75 22 125/73 95 Room Air 07/14/22 13:16 70 Laboratory Results Abnormal lab results 07/14/22 Range/Units 13:23 Sodium 134 L (136-145) mmol/L BUN 26 H (6-23) mg/dl BUN/Creatinine Ratio 22.6 H (10-20) Glucose 130 H (70-99(Fasting)) mg/dl AST 41 H (13-39) U/L Diagnostic Findings Hip/Pelvis X-Ray 07/14/22 12:58 XR hip LT 2V w pelvis CLINICAL HISTORY: Left hip pain following fall. COMPARISON: CT of the abdomen and pelvis March 22, 2014. FINDINGS: Sacroiliac joints and symphysis pubis are intact. Note is made of an acute comminuted and displaced intertrochanteric fracture of the left femur. There is mild subtrochanteric extension. Fracture is angulated. No additional acute fractures are present. IMPRESSION: Acute comminuted displaced intertrochanteric fracture of the left femur. ACT 112: Negative or not required by law. Electronically signed by: Juan Carlos Carreno M.D. 07/14/2022 2:26 PM ECG Additional Comments: Poor data quality, interpretation may be adversely affected Normal sinus rhythm Normal ECG When compared with ECG of 17-DEC-2013 20:04, Nonspecific T wave abnormality now evident in Anterior leads Code Status & VTE Plan Code Status FUll code VTE Prophylaxis Plan VTE Prophylaxis will be ordered: Yes Supervising Physician Co-Signing Physician Notes I personally saw and examined the patient. I verified all holguin points and agree with Robert Zambrano PA-C with the following exceptions and/or additions: 76 year old female presents the ER with Left hip pain following a mechanical fall with slipping on ice. No other injuries as result of the fall. O/E HS RRR, no murmurs (systolic murmur heard by PA above), Chest CTAB, Abdo SNT, no open skin at site of fracture, no muscle spasm, NV intact distal to fracture (DP/PT pulses intact and sensation in foot intact) A/P Osteoporotic left hip fracture - vitamin D with AM labs, NPO after midnight, consult orthopedics Osteoporosis - severe reaction to zoledronic acid, will defer to PCP on follow up whether to try alternative osteoporotic treatment PG Care Time/CCT Total # of Minutes Spent Total Time Spent with Patient: Total time spent is greater than 50% in coordination of care (as documented) at patient's floor/unit and/or counseling patient: Coding [place] [address] INT INP/OBS CARE 2/55MIN Patient Type Established Medical Decision Making High Complexity Diagnoses Closed fracture of left hip S72.002A Encounter type: initial encounter Heart murmur R01.1 Hypothyroidism E03.9 Hypercholesterolemia E78.00 Hypertension I10 Hypertension type: primary hypertension Benign paroxysmal positional vertigo H81.10 (1) Closed fracture of left hip Encounter type: initial encounter Qualified Code(s): S72.002A - Fracture of unspecified part of neck of left femur, initial encounter for closed fracture (5) Hypertension Hypertension type: primary hypertension Qualified Code(s): I10 - Essential (primary) hypertension
--- NOTE | 2022-07-14 15:46 | Orthopedic Consultation ---
Date of Consultation July 14, 2022 Assessment & Plan (1) Closed fracture of left hip: X-rays reviewed. Patient has a displaced left intertrochanteric hip fracture with mild subtroch extension. I have discussed the case with Dr. Valdez. Patient will require a left trochanteric femoral nailing. Plans for surgery tomorrow as long as the patient is medically stable for surgery. History of Present Illness Reason for Consultation: Left intertrochanteric hip fracture History of Present Illness Patient is a 76-year-old female who states that she was walking out of [place] this afternoon. She ended up slipping and falling onto her left hip. She had immediate pain in her left hip and groin and was unable to ambulate. She denies hitting her head. She denies losing consciousness. She was brought to [facility] where she was seen by the staff. X-rays were taken and it was found that she had a left intertrochanteric hip fracture. She is in the process of being admitted by the hospitalist team. The ER physician contacted Dr. Neil Valdez who discussed the case with him. We are being asked to evaluate her left hip fracture for further care. Allergies Allergy/AdvReac Type Severity Reaction Status Date / Time Sulfa (Sulfonamide Allergy Unknown . Verified 06/21/22 15:00 Antibiotics) secobarbital [From Seconal] Allergy Verified 06/21/22 15:00 mannitol [From Reclast] AdvReac Intermediate fever, Verified 06/21/22 15:00 bone pain, headache water for injection,sterile AdvReac Intermediate fever, Verified 06/21/22 15:00 [From Reclast] bone pain, headache zoledronic acid AdvReac Intermediate fever, Verified 06/21/22 15:00 [From Reclast] bone pain, headache Home Medications Medication Instructions Recorded Confirmed Type ascorbic acid (vitamin C) 500 mg 500 mg PO DAILY 01/16/19 07/14/22 History tablet (Vitamin C) cholecalciferol (vitamin D3) 25 1,000 units PO DAILY 01/16/19 07/14/22 History mcg (1,000 unit) capsule lutein 20 mg capsule 20 mg PO DAILY 01/16/19 07/14/22 History multivitamin (Daily Multi-Vitamin 1 tab PO DAILY 01/16/19 07/14/22 History tablet) vitamin B complex 1 tab PO DAILY 01/16/19 07/14/22 History vitamin E (dl, acetate) 180 mg 400 units PO DAILY 01/23/19 07/14/22 History (400 unit) capsule meclizine 25 mg tablet 25 mg PO Q6H PRN dizziness 01/02/20 07/14/22 History atorvastatin 40 mg tablet 40 mg PO QPM #90 tabs 03/12/22 07/14/22 Rx levothyroxine 75 mcg tablet 75 mcg PO DAILY #90 tabs 03/12/22 07/14/22 Rx lisinopril 20 1 tab PO DAILY #90 tabs 03/12/22 07/14/22 Rx mg-hydrochlorothiazide 12.5 mg tablet alprazolam 0.25 mg tablet 0.25 mg PO DAILY PRN anxiety #30 05/10/22 07/14/22 Rx tabs Patient History Medical History Chronic kidney disease (CKD) stage G3b/A1, moderately decreased glomerular filtration rate (GFR) between 30-44 mL/min/1.73 square meter and albuminuria creatinine ratio less than 30 mg/g Leticia's thyroiditis Hypothyroidism Lumbar spondylosis Myofascial pain Osteoporosis Ovarian cyst Rotator cuff syndrome Sacroiliitis Solitary thyroid nodule Surgical History History of nephrectomy LEFT PELVIC NEPHRECTOMY History of oophorectomy History of surgery LYSIS OF ADHESIONS Tubal ligation status Family History Mother Hypertension Heart disease Myocardial infarction Brother Hearing loss Myocardial infarction Prostate cancer Pancreatic cancer Other No family history of allergies No family history of bleeding disorder Denies family history of Ovarian cancer Diabetes Breast cancer Lung cancer Colorectal cancer Cancer Stroke Asthma Social History Smoking Status: Never smoker Tobacco Type: Cigarettes Cigarettes Per Day: 1/2 pack per day - off/on for several years; Second Hand Exposure: No; Hx Alcohol Use: Yes Alcohol type: beer Alcohol Intake Frequency: 2-4 x/Month Alcohol Intake Frequency Comment: social Hx Substance Use: No Preferred Language: Panamanian Communication Ability: Effective Visual Impairment: Limited Hearing Ability: Normal Beliefs That Will Affect Care: None marital status: Current Living Situation: Spouse current occupational status: retired current occupation: retired RN How many Children do You have: 2 Feels Safe at Home: Yes Childhood Exposure to Second-Hand Smoke: No caffeine: Yes Dental Care, Regularly: Yes Physical Activity Frequency: 3-4 Times per Week Seatbelt Use: always Sunscreen Use: No Assistive Devices: Glasses Physical Exam Physical Exam: Patient is a 76-year-old white female who appears her stated age. She is alert and oriented x3. No acute distress. She does complain of left hip pain at this time. She is pleasant during the exam. On examination of her left lower extremity, a pillow has been placed under her left thigh for comfort. She does have some shortening and external rotation of the left lower extremity compared to the right. She has no pain on the left knee. She has no pain in the left ankle. She is able to take her left ankle through range of motion without pain in the ankle. No range of motion is currently done at this time of the left knee and hip secondary to left hip fracture. Right lower extremity is within normal limits and is nontender at the hip, knee, ankle. Upper extremities are unaffected at this time. She is nontender at the shoulders, elbows, and wrists. Range of motion is within n ormal limits. She denies any new or increased cervical pain, thoracic pain, low back pain. She denies any decrease sensation of the lower extremities at this time. There is no gross motor or sensory loss seen at this time. Results & Data ([facility]) Vital Signs (Past 12 Hours) Vital Signs Temp Pulse Resp BP Pulse Ox O2 Del Method 07/14/22 12:40 24 95 07/14/22 12:40 36.5 C 75 22 125/73 95 Room Air 07/14/22 13:16 70 Laboratory Results Laboratory Results WBC 7.19 K/ul (4.8-10.8) 07/14/22 13:23 RBC 4.35 M/uL (4.20-5.40) 07/14/22 13:23 Hgb 13.7 g/dl (12.0-16.0) 07/14/22 13:23 Hct 40.8 % (37.0-47.0) 07/14/22 13:23 MCV 93.8 fL (80.0-100.0) 07/14/22 13:23 MCH 31.5 pg (25.0-34.0) 07/14/22 13:23 MCHC 33.6 g/dL (32.0-36.0) 07/14/22 13:23 RDW Std Deviation 42.7 fL (36.4-46.3) 07/14/22 13:23 RDW Coeff of Mikayla 12.3 % (11.5-14.5) 07/14/22 13:23 Plt Count 196 K/uL (130-400) 07/14/22 13:23 MPV 11.5 fL (9.4-12.4) 07/14/22 13:23 Immature Gran % (Auto) 0.6 % 07/14/22 13:23 Neut % (Auto) 61.8 % 07/14/22 13:23 Lymph % (Auto) 28.0 % 07/14/22 13:23 [place] % (Auto) 7.9 % 07/14/22 13:23 Eos % (Auto) 1.0 % 07/14/22 13:23 Baso % (Auto) 0.7 % 07/14/22 13:23 Neut # (Auto) 4.45 K/uL (1.40-6.50) 07/14/22 13:23 Lymph # (Auto) 2.01 K/uL (1.2-3.4) 07/14/22 13:23 [place] # (Auto) 0.57 K/uL (0.11-0.59) 07/14/22 13:23 Eos # (Auto) 0.07 K/uL (0-0.50) 07/14/22 13:23 Baso # (Auto) 0.05 K/uL (0-0.2) 07/14/22 13:23 Immature Gran # (Auto) 0.04 K/uL (0.01-0.20) 07/14/22 13:23 PT 10.8 Seconds (9.0-12.0) 07/14/22 13:23 INR 1.0 (0.9-1.1) 07/14/22 13:23 Sodium 134 mmol/L (136-145) L 07/14/22 13:23 Potassium 4.2 mmol/L (3.5-5.1) 07/14/22 13:23 Chloride 102 mmol/L (98-107) 07/14/22 13:23 Carbon Dioxide 25 mmol/L (21-32) 07/14/22 13:23 Anion Gap 7 (3-11) 07/14/22 13:23 BUN 26 mg/dl (6-23) H 07/14/22 13:23 Creatinine 1.15 mg/dl (0.6-1.2) 07/14/22 13:23 Est Cr Clr Drug Dosing 36.5 ml/min 07/14/22 13:23 Est GFR ( Amer) 53.9 ml/min 07/14/22 13:23 Est GFR (Non-Af Amer) 46.5 ml/min 07/14/22 13:23 BUN/Creatinine Ratio 22.6 (10-20) H 07/14/22 13:23 Glucose 130 mg/dl (70-99(Fasting)) H 07/14/22 13:23 Calcium 10.0 mg/dl (8.5-10.1) 07/14/22 13:23 Total Bilirubin 0.6 mg/dl (0.2-1.0) 07/14/22 13:23 AST 41 U/L (13-39) H 07/14/22 13:23 ALT 31 U/L (7-52) 07/14/22 13:23 Alkaline Phosphatase 83 U/L (34-104) 07/14/22 13:23 Total Protein 7.8 gm/dl (6.0-8.3) 07/14/22 13:23 Albumin 4.5 gm/dl (3.4-5.0) 07/14/22 13:23 Globulin 3.3 gm/dl (2.5-4.0) 07/14/22 13:23 Albumin/Globulin Ratio 1.4 (0.9-2) 07/14/22 13:23 SARS-CoV-2, RNA, NAAT NEGATIVE (NEGATIVE) 07/14/22 13:41 Impressions Hip/Pelvis X-Ray 07/14/22 12:58 XR hip LT 2V w pelvis CLINICAL HISTORY: Left hip pain following fall. COMPARISON: CT of the abdomen and pelvis March 22, 2014. FINDINGS: Sacroiliac joints and symphysis pubis are intact. Note is made of an acute comminuted and displaced intertrochanteric fracture of the left femur. There is mild subtrochanteric extension. Fracture is angulated. No additional acute fractures are present. IMPRESSION: Acute comminuted displaced intertrochanteric fracture of the left femur. ACT 112: Negative or not required by law. Electronically signed by: Juan Carlos Carreno M.D. 07/14/2022 2:26 PM (1) Closed fracture of left hip Encounter type: initial encounter Qualified Code(s): S72.002A - Fracture of unspecified part of neck of left femur, initial encounter for closed fracture
[2022-07-14] MEDS ORDERED: MoRPHine SULFATE 2 MG/ML CARP IV PRN (15:48)
--- NOTE | 2022-07-14 15:51 | XRay Report ---
XR chest 1V not portable HISTORY: Left hip fracture. Preop. fall COMPARISON: Chest 12/17/2013. FINDINGS: Mild elevation of the right hemidiaphragm which may be positional. The lungs are clear. The cardiac silhouette is top normal in size. This mildly tortuous thoracic aorta. No pleural effusions. No pneumothorax. No evidence for pulmonary edema. IMPRESSION: No acute process. ACT 112: Negative or not required by law. Electronically signed by: Too Brito M.D. 07/14/2022 3:50 PM
[2022-07-14] MEDS ORDERED: ALPRAZolam 0.25 MG TABLET PO PRN (17:02)
[2022-07-14] MEDS ORDERED: LORazepam 2 MG/1 ML VIAL IV ONE (17:10)
[2022-07-14] MEDS: CYCLOBENZAPRINE HCL 10 MG TAB PO SCH (17:38)
--- NOTE | 2022-07-14 17:42 | Electrocardiogram Report ---
Test Reason : Blood Pressure : / mmHG Vent. Rate : 064 BPM Atrial Rate : 064 BPM P-R Int : 158 ms QRS Dur : 068 ms QT Int : 428 ms P-R-T Axes : 056 006 038 degrees QTc Int : 441 ms Poor data quality, interpretation may be adversely affected Normal sinus rhythm Normal ECG When compared with ECG of 17-DEC-2013 20:04, Nonspecific T wave abnormality now evident in Anterior leads Confirmed by Kelvin Solomon ([id number] on 07/14/2022 5:42:40 PM Referred By: REFERRED SELF Confirmed By:Michael Solomon
[2022-07-14] MEDS: LIDOCAINE 5% 1 PATCH TD SCH (17:59)
[2022-07-14] MEDS: ACETAMINOPHEN 325 MG TAB PO SCH (17:59)
[2022-07-14] MEDS ORDERED: ONDANSETRON INJ 2 MG/ML 2 ML VIAL IV PRN (20:54)
[2022-07-14] MEDS ORDERED: LACTATED RINGER'S 1,000 ML IV ONE (20:55)
[2022-07-14] MEDS ORDERED: CYCLOBENZAPRINE HCL 10 MG TAB PO SCH (21:00)
[2022-07-14] MEDS: MoRPHine SULFATE 2 MG/ML CARP IV PRN (21:27)
[2022-07-14] MEDS: ATORVASTATIN 40 MG TAB PO SCH (21:28)
[2022-07-14] MEDS: DOCUSATE SODIUM/SENNA 50/8.6MG TAB PO SCH (21:29)
[2022-07-14] MEDS: LACTATED RINGER'S 1,000 ML IV SCH (22:00)
[2022-07-15] MEDS: MoRPHine SULFATE 2 MG/ML CARP IV PRN ×5 (01:01→20:12)
[2022-07-15] MEDS: LACTATED RINGER'S 1,000 ML IV SCH ×2 (05:03→17:03)
[2022-07-15] MEDS: LEVOTHYROXINE SODIUM 75 MCG TABLET PO SCH (05:06)
[2022-07-15] MEDS: ACETAMINOPHEN 325 MG TAB PO SCH ×5 (05:06→23:53)
[2022-07-15] MEDS: LIDOCAINE 5% 1 PATCH TD SCH (08:09)
[2022-07-15] MEDS: CYCLOBENZAPRINE HCL 10 MG TAB PO SCH ×4 (08:09→21:39)
--- NOTE | 2022-07-15 08:59 | Anesthesiology Consultation ---
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 Verified 06/21/22 15:00 Antibiotics) secobarbital [From Seconal] Allergy Verified 06/21/22 15:00 mannitol [From Reclast] AdvReac Intermediate fever, Verified 06/21/22 15:00 bone pain, headache water for injection,sterile AdvReac Intermediate fever, Verified 06/21/22 15:00 [From Reclast] bone pain, headache zoledronic acid AdvReac Intermediate fever, Verified 06/21/22 15:00 [From Reclast] bone pain, headache Medications Home Medications Medication Instructions Recorded Confirmed Last Taken ascorbic acid (vitamin C) 500 mg 500 mg PO DAILY 01/16/19 07/14/22 Unknown tablet (Vitamin C) cholecalciferol (vitamin D3) 25 1,000 units PO DAILY 01/16/19 07/14/22 Unknown mcg (1,000 unit) capsule lutein 20 mg capsule 20 mg PO DAILY 01/16/19 07/14/22 Unknown multivitamin (Daily Multi-Vitamin 1 tab PO DAILY 01/16/19 07/14/22 Unknown tablet) vitamin B complex 1 tab PO DAILY 01/16/19 07/14/22 Unknown vitamin E (dl, acetate) 180 mg 400 units PO DAILY 01/23/19 07/14/22 Unknown (400 unit) capsule meclizine 25 mg tablet 25 mg PO Q6H PRN dizziness 01/02/20 07/14/22 Unknown atorvastatin 40 mg tablet 40 mg PO QPM #90 tabs 03/12/22 07/14/22 Unknown levothyroxine 75 mcg tablet 75 mcg PO DAILY #90 tabs 03/12/22 07/14/22 Unknown lisinopril 20 1 tab PO DAILY #90 tabs 03/12/22 07/14/22 Unknown mg-hydrochlorothiazide 12.5 mg tablet alprazolam 0.25 mg tablet 0.25 mg PO DAILY PRN anxiety #30 05/10/22 07/14/22 Unk nown tabs Active Medications Generic Name Dose Route Start Last Admin Trade Name Freq PRN Reason Stop Dose Admin Acetaminophen 650 mg 07/14/22 17:00 07/15/22 05:06 Acetaminophen 325 Mg Tab PO 08/13/22 16:59 650 mg Q6H LUKE Administration Alprazolam 0.25 mg 07/14/22 17:02 07/15/22 03:16 Alprazolam 0.25 Mg Tablet PO 08/13/22 17:01 0.25 mg DAILY PRN Administration anxiety Atorvastatin Calcium 40 mg 07/14/22 21:00 07/14/22 21:28 Atorvastatin 40 Mg Tab PO 08/13/22 20:59 Not Given QPM LUKE Cyclobenzaprine HCl 10 mg 07/14/22 16:30 07/15/22 08:09 Cyclobenzaprine Hcl 10 Mg Tab PO 08/13/22 16:29 Not Given TID LUKE Lactated Ringer's 1,000 mls @ 125 mls/hr 07/14/22 21:00 07/15/22 05:03 Lr IV 08/13/22 20:59 125 mls/hr .Q8H LUKE Administration Levothyroxine Sodium 75 mcg 07/15/22 06:30 07/15/22 05:06 Levothyroxine Sodium 75 Mcg Tablet PO 08/14/22 06:29 75 mcg DAILYBB LUKE Administration Lidocaine 1 patch 07/14/22 17:00 07/15/22 08:09 Lidocaine 5% 1 Patch TD 08/13/22 16:59 Not Given QAM [facility] Miscellaneous 1 each 07/14/22 21:00 07/14/22 22:00 Remove Lidoderm Patch N/A 08/13/22 20:59 1 each DAILY@2100 LUKE Administration Morphine Sulfate 2 - 4 mg 07/14/22 20:57 07/15/22 06:06 Morphine Sulfate 2 Mg/Ml Carp IV 07/28/22 15:47 4 mg Q4H PRN Administration Pain Ondansetron HCl 4 mg 07/14/22 20:54 07/15/22 01:21 Ondansetron Inj 2 Mg/Ml 2 Ml Vial IV 08/13/22 20:53 4 mg Q4H PRN Administration Nausea Senna/Docusate Sodium 2 tab 07/14/22 21:00 07/14/22 21:29 Docusate Sodium/Senna 50/8.6mg Tab PO 08/13/22 20:59 Not Given HS LUKE NPO Date Last Intake of Fluids: 07/14/22 Time Last Intake of Fluids: 21:00 Date Last Intake of Solids: 07/14/22 Time Last Intake of Solids: 21:00 Past Medical History Medical History Chronic kidney disease (CKD) stage G3b/A1, moderately decreased glomerular filtration rate (GFR) between 30-44 mL/min/1.73 square meter and albuminuria creatinine ratio less than 30 mg/g Leticia's thyroiditis Hypothyroidism Lumbar spondylosis Myofascial pain Osteoporosis Ovarian cyst Rotator cuff syndrome Sacroiliitis Solitary thyroid nodule Past Family History Family History Mother Hypertension Heart disease Myocardial infarction Brother Hearing loss Myocardial infarction Prostate cancer Pancreatic cancer Other No family history of allergies No family history of bleeding disorder Denies family history of Ovarian cancer Diabetes Breast cancer Lung cancer Colorectal cancer Cancer Stroke Asthma Past Surgical History Surgical History History of nephrectomy LEFT PELVIC NEPHRECTOMY History of oophorectomy History of surgery LYSIS OF ADHESIONS Tubal ligation status Social History Smoking Status: Never smoker Smoking cigarettes per day: 1/2 pack per day - off/on for several years Hx Alcohol Use: Yes Alcohol type: beer Hx Substance Use: No Physical Exam Vital Signs Last Vital Signs Temp 98.1 F 07/15/22 07:43 Pulse 68 07/15/22 07:43 Resp 16 07/15/22 07:43 BP 104/62 07/15/22 08:41 Pulse Ox 95 07/15/22 08:41 O2 Del Method Room Air 07/15/22 08:41 O2 Flow Rate 2 07/14/22 15:30 Testing Laboratory Results 07/14/22 13: PT 10.8 Seconds (9.0-12.0) 07/14/22 13: INR 1.0 (0.9-1.1) 07/14/22 13:23 Blood Type O Positive 07/14/22 15:59 Antibody Screen NEGATIVE 07/14/22 15:59 Electrocardiogram Date: 07/14/22 Poor data quality, interpretation may be adversely affected Normal sinus rhythm Normal ECG When compared with ECG of 17-DEC-2013 20:04, Nonspecific T wave abnormality now evident in Anterior leads Confirmed by Kelvin Solomon ([id number]) on 07/14/2022 5:42:40 PM Chest X-Ray Date: 07/14/22 Findings: + NAD
[2022-07-15 09:19] LABS: Albumin Globulin Ratio 1.5 (0.9-2); Albumin Level 3.4 gm/dl (3.4-5.0); BUN Creatinine Ratio 19.4 (10-20); Bilirubin,Total 0.5 mg/dl (0.2-1.0); Calcium 8.9 mg/dl (8.5-10.1); Creatinine Clr Calc Pharmacy 33.8 ml/min; Est GFR (African American) 49.2 ml/min; Est GFR (Non-African American) 42.5 ml/min; Globulin 2.3 gm/dl (2.5-4.0); Magnesium 1.7 mg/dl (1.7-2.4); Potassium 4.2 mmol/L (3.5-5.1); Total Protein 5.7 gm/dl (6.0-8.3)
--- NOTE | 2022-07-15 09:28 | Hospitalist Progress Note ---
Date of Service July 15, 2022 Assessment & Plan (1) Closed fracture of left hip: Plan: -Admitted to med/surge -The patient is currently afebrile, hemodynamically stable and stable on RA -The patient sustained a mechanical fall on the ice/slush in the [facility] 07/14/22 -No other acute injuries and no concerning symptoms prior to her fall to suggest another etiology -The patient was evaluated by Orthopedics who will take her to the OR today -Patient with Evans's traction, applied in ER -Continue pain control with the following: >PO tylenol 650 mg q6h scheduled >Lidocaine patch and ice >Flexeril 10 mg PO TID >Morphine 2 mg IV q4h prn pain 6+ -Patient has been NPO at midnight -To OR later today (2) Hypothyroidism: Plan: -Continue levothyroxine -Last TSH 02/2022 was 1.115 (3) Hypercholesterolemia: Plan: -Continue statin (4) Hypertension: Plan: -Stable -Held dose of Lisinopril-HCTZ today -BP 100/62 (5) Benign paroxysmal positional vertigo: Plan: -Will hold prn meclizine for now to avoid over-sedation Plan The patient was discussed with Dr. Madden -Ortho consulted and plan for Left trochanteric femoral nailing later today -NPO at midnight -Continue BL SCDs for DVT PPX -AM CBC, CMP, Mag, PT/INR Admission and Anticipated Discharge Date Admission Date: July 14, 2022 Subjective Patient was sleeping and awoke to her name. She is scheduled for surgery later today for left hip fracture. She is NPO. She states she is tired and has no other complaints. She hs no pain if she is laying still. She deneis any chest pain, SOB, abdominal pain, nausea or vomiting. Echo with normal left ventricular systolic function, EF 60-65% Review of Systems Review of Systems: Denies current fever, chills, headache, changes in vision, hearing, taste, and smell, chest pain, SOB, cough, abdominal pain, vomiting, diarrhea, hematemesis, melena, dysuria, hematuria All systems have been reviewed and are otherwise negative unless stated positive above. Physical Exam Constitutional: WD/WN, vitals as above Neck: trachea midline, no thyromegaly Respiratory: normal respiratory effort, lungs clear to auscultation Cardiovascular: Rate/Rhythm: regular rate and regular rhythm Heart Sounds: normal S1 and normal S2 Gastrointestinal (Abdomen): normal bowel sounds, soft, nontender, no hepatosplenomegaly Musculoskeletal: left leg in immobilizer and ice applied Skin: no rashes, warm and dry Psychiatric: A+Ox3, euthymic affect Results & Data Results & Data ([facility]) Vital Signs (Past 12 Hours) Vital Signs Temp Pulse Resp BP BP Pulse Ox O2 Del Method 07/15/22 08:41 104/62 95 Room Air 07/15/22 08:00 Room Air 07/15/22 07:43 36.7 C 68 16 90/61 L 93 Room Air 07/14/22 22:08 17 94 Room Air 07/14/22 22:06 36.5 C 61 15 102/69 92 Room Air Laboratory Results Abnormal lab results 07/14/22 07/15/22 Range/Units 13:23 07:52 Sodium 134 L 134 L (136-145) mmol/L BUN 26 H 24 H (6-23) mg/dl Creatinine 1.24 H (0.6-1.2) mg/dl BUN/Creatinine Ratio 22.6 H (10-20) Glucose 130 H 105 H (70-99(Fasting)) mg/dl AST 41 H (13-39) U/L Total Protein 5.7 L D (6.0-8.3) gm/dl Globulin 2.3 L (2.5-4.0) gm/dl Diagnostic Findings Chest X-Ray 07/14/22 12:58 XR chest 1V not portable HISTORY: Left hip fracture. Preop. fall COMPARISON: Chest 12/17/2013. FINDINGS: Mild elevation of the right hemidiaphragm which may be positional. The lungs are clear. The cardiac silhouette is top normal in size. This mildly tortuous thoracic aorta. No pleural effusions. No pneumothorax. No evidence for pulmonary edema. IMPRESSION: No acute process. ACT 112: Negative or not required by law. Electronically signed by: Too Brito M.D. 07/14/2022 3:50 PM Hip/Pelvis X-Ray 07/14/22 12:58 XR hip LT 2V w pelvis CLINICAL HISTORY: Left hip pain following fall. COMPARISON: CT of the abdomen and pelvis March 22, 2014. FINDINGS: Sacroiliac joints and symphysis pubis are intact. Note is made of an acute comminuted and displaced intertrochanteric fracture of the left femur. There is mild subtrochanteric extension. Fracture is angulated. No additional acute fractures are present. IMPRESSION: Acute comminuted displaced intertrochanteric fracture of the left femur. ACT 112: Negative or not required by law. Electronically signed by: Juan Carlos Carreno M.D. 07/14/2022 2:26 PM PG Care Time/CCT Total # of Minutes Spent Total Time Spent with Patient: Total time spent is greater than 50% in coordination of care (as documented) at patient's floor/unit and/or counseling patient: Coding Level of Care Code 07525 SUB INP/OBS CARE MIN Diagnoses Closed fracture of left hip S72.002A Encounter type: initial encounter Hypothyroidism E03.9 Hypercholesterolemia E78.00 Hypertension I10 Hypertension type: primary hypertension Benign paroxysmal positional vertigo H81.10 (1) Closed fracture of left hip Encounter type: initial encounter Qualified Code(s): S72.002A - Fracture of unspecified part of neck of left femur, initial encounter for closed fracture (4) Hypertension Hypertension type: primary hypertension Qualified Code(s): I10 - Essential (primary) hypertension
--- NOTE | 2022-07-15 10:53 | XCELERA ---
[id number]
--- NOTE | 2022-07-15 13:39 | History & Physical Bridge Note ---
Date of Service July 15, 2022 History & Physical Bridge Note I have examined the patient, reviewed the History & Physical and in the interval since the performance of the History & Physical I have noted the following changes of clinical significance: no changes noted. Met with patient preoperatively and had a discussion regarding risk benefits potential complications of left hip cephalomedullary nail. These include but are not limited to infection, neurovascular injury, DVT, nonunion, malunion, hardware failure and need for future surgery. After reviewing these she elected to proceed with surgical intervention and written consent was obtained.
[2022-07-15] MEDS ORDERED: PROPOFOL IV EMULSION 10 MG/ML 20 ML VIAL IV ONE ×2 (13:41→15:28)
[2022-07-15] MEDS ORDERED: LIDOCAINE 2% MPF LOCAL 5 ML VIAL INFIL ONE (13:41)
[2022-07-15] MEDS ORDERED: fentaNYL citrate 100 MCG/2 ML VIAL ONE (13:41)
[2022-07-15] MEDS ORDERED: ONDANSETRON INJ 2 MG/ML 2 ML VIAL ONE (13:41)
[2022-07-15] MEDS ORDERED: BUPIVACAINE 0.5 % 5 MG/1 ML PF 10ML VIAL ONE (14:26)
[2022-07-15] MEDS ORDERED: fentaNYL citrate 100 MCG/2 ML VIAL IV PRN (14:27)
[2022-07-15] MEDS ORDERED: ePHEDrine sulfate 50 MG/ML AMP IV PRN (14:27)
[2022-07-15] MEDS ORDERED: ONDANSETRON INJ 2 MG/ML 2 ML VIAL IV PRN (14:27)
[2022-07-15] MEDS ORDERED: ATROPINE SULFATE 0.1 MG/ML 10ML SYR IV PRN (14:27)
[2022-07-15] MEDS ORDERED: ceFAZolin 2000MG 2,000 MG/15 ML SYR IV ONE (14:31)
[2022-07-15] MEDS ORDERED: ceFAZolin 2,000 MG/15 ML IV PUSH IV ONE (14:36)
[2022-07-15] MEDS ORDERED: ePHEDrine sulfate 50 MG/ML SYR ONE (15:15)
[2022-07-15] MEDS ORDERED: VASOPRESSIN 20 UNIT/ML VIAL ONE (15:15)
[2022-07-15] MEDS ORDERED: PHENYLEPHRINE 100MCG/ML 5ML SYR ONE (15:15)
--- NOTE | 2022-07-15 15:50 | Post Operative Brief Note ---
Immediate Post Op Note v1 Date of Surgery July 15, 2022 Pre & Post Diagnosis Operation Date: 07/15/22 07:00 Pre-Op Diagnosis: Left intertrochanteric hip fracture Post-Op Diagnosis: Left intertrochanteric hip fracture I identified the patient and participated in the time-out.: Yes Procedure Operation Date: 07/15/22 07:00 Actual Procedures p Left Tronchanteric Femoral Nail(Left) - Neil Valdez DO Surgeon Neil Valdez DO Maintenance Foreman Federico Monterroso PA-C Estimated Blood Loss 50 Findings Consistent with Post-Op Diagnosis see dictation Drains Palmer Catheter Complications None
--- NOTE | 2022-07-15 16:20 | Fluoroscopy Report ---
FL hip LT 2-3V CLINICAL HISTORY: LT TROCH NAIL COMPARISON STUDY: Pelvis and left hip radiographs July 14, 2022. FLUOROSCOPY TIME: 91.8 seconds. EXPOSURE DOSE: 18.04 mGy FLUOROSCOPIC IMAGES: 4 FINDINGS: Fluoroscopy was provided during open reduction and internal fixation of the intertrochanter ic fracture of the left femur with trochanteric nail and intramedullary viola. Fracture alignment has m arkedly improved and appears near anatomic. The hardware is intact. Distal screw is present. There ar e no unexpected radiopaque foreign bodies. IMPRESSION: Fluoroscopy provided during internal fixation of the intertrochanteric fracture of the l eft femur. ACT 112: Negative or not required by law. Electronically signed by: Juan Carlos Carreno M.D. 07/15/2022 4:19 PM
--- NOTE | 2022-07-15 16:43 | Anesthesiology Progress Note ---
Date of Service July 15, 2022 Anesthesia Post Procedure Vital Signs Vital Signs: Temp Pulse Pulse Resp BP BP Pulse Ox 07/15/22 16:35 78 15 105/59 L 91 07/15/22 16:25 99 H 13 116/58 L 100 07/15/22 16:15 36.7 C 61 21 123/59 L 91 07/15/22 13:55 36.6 C 78 20 110/63 96 07/15/22 12:45 100/62 07/15/22 11:45 37.1 C 71 16 86/55 L 95 07/15/22 08:41 104/62 95 07/15/22 08:00 07/15/22 07:43 36.7 C 68 16 90/61 L 93 07/14/22 22:08 17 94 07/14/22 22:06 36.5 C 61 15 102/69 92 07/14/22 17:04 07/14/22 17:04 36.8 C 80 18 97/63 L 98 O2 Del Method O2 Flow Rate 07/15/22 16:35 Room Air 07/15/22 16:25 Oxymask 5 07/15/22 16:15 Room Air 07/15/22 13:55 Room Air 07/15/22 12:45 07/15/22 11:45 Room Air 07/15/22 08:41 Room Air 07/15/22 08:00 Room Air 07/15/22 07:43 Room Air 07/14/22 22:08 Room Air 07/14/22 22:06 Room Air 07/14/22 17:04 Room Air 07/14/22 17:04 Room Air Pain Intensity Left Hip: Pain Intensity: 10 Transfer of Care Handoff Completed per policy Notes Mental Status: alert / awake / arousable Patient Amnestic to Procedure: Yes Nausea / Vomiting: adequately controlled Pain: adequately controlled Airway Patency, RR, SpO2: stable & adequate BP & HR: stable & adequate Hydration State: stable & adequate Neuraxial Anesthesia: was administered and sensory block is resolving Anesthetic Complications: no major complications apparent
[2022-07-15] MEDS: SODIUM CHLORIDE 0.9% 1000ML 1,000 ML IV SCH (17:21)
[2022-07-15] MEDS ORDERED: ALBUTEROL 0.083% NEBU SOLN 3 ML VIAL ONE (17:31)
[2022-07-15] MEDS ORDERED: MoRPHine SULFATE 2 MG/ML CARP IV STA (20:08)
[2022-07-15] MEDS: DOCUSATE SODIUM/SENNA 50/8.6MG TAB PO SCH (21:38)
[2022-07-15] MEDS: ATORVASTATIN 40 MG TAB PO SCH (21:39)
[2022-07-15] MEDS: ASPIRIN 81 MG ECTAB PO SCH (21:39)
[2022-07-15] MEDS: ceFAZolin 2000MG 2,000 MG/15 ML SYR IV SCH (22:52)
[2022-07-15] MEDS ORDERED: LACTATED RINGER'S 1,000 ML IV ONE (23:39)
[2022-07-15] MEDS ORDERED: ACETAMINOPHEN 500 MG TAB PO ONE (23:40)
[2022-07-16] MEDS: MoRPHine SULFATE 2 MG/ML CARP IV PRN ×5 (02:19→18:37)
[2022-07-16] MEDS ORDERED: SODIUM CHLORIDE 0.9% 250 ML IV PRN (02:39)
--- NOTE | 2022-07-16 03:22 | Communication Note ---
Date of Service: July 16, 2022 Noted Hbg drop from 13.7 to 8.0, patient complaining of hip pain s/p left hip repair POD 1, but otherwise easily aroused to voice coherent cooperative, satting 97% on 2L NC. Obtained consent for blood transfusion, ordered 2 U units to transfuse now.
[2022-07-16] MEDS: ACETAMINOPHEN 325 MG TAB PO SCH ×3 (06:48→17:37)
[2022-07-16] MEDS: LEVOTHYROXINE SODIUM 75 MCG TABLET PO SCH (06:49)
[2022-07-16] MEDS: ceFAZolin 2000MG 2,000 MG/15 ML SYR IV SCH (06:50)
[2022-07-16] MEDS: CYCLOBENZAPRINE HCL 10 MG TAB PO SCH ×3 (09:10→20:34)
[2022-07-16] MEDS: ASPIRIN 81 MG ECTAB PO SCH ×2 (09:10→20:32)
[2022-07-16] MEDS: LIDOCAINE 5% 1 PATCH TD SCH (09:11)
--- NOTE | 2022-07-16 09:11 | Hospitalist Progress Note ---
Date of Service July 16, 2022 Assessment & Plan (1) Closed fracture of left hip: Plan: -Admitted to [facility] -The patient is currently afebrile, hemodynamically stable and stable on RA -The patient sustained a mechanical fall on the ice/slush in the [facility] 07/14/22 -No other acute injuries and no concerning symptoms prior to her fall to suggest another etiology -The patient was evaluated by Orthopedics who will take her to the OR today -Patient with Evans's traction, applied in ER -Continue pain control with the following: >PO tylenol 650 mg q6h scheduled >Lidocaine patch and ice >Flexeril 10 mg PO TID >Morphine 2 mg IV q4h prn pain 6+ -S/P Left intertrochanteric femoral nail 07/15/22 Ortho recommended WBAT, PT/OT ASA BID Tray Hose and SCDs (2) Hypothyroidism: Plan: -Continue levothyroxine -Last TSH 02/2022 was 1.115 (3) Hypercholesterolemia: Plan: -Continue statin (4) Hypertension: Plan: -Stable -Continue to hold Lisinopril-HCTZ -BP 99/65 (5) Benign paroxysmal positional vertigo: Plan: -Will hold prn meclizine for now to avoid over-sedation (6) ABLA (acute blood loss anemia): Plan: - Hgb dropped from 13 to 8 post operatively - EBL documented at 50 - 2 Unit transfusion ordered Plan The patient was discussed with Dr. Madden -Ortho consulted and S/P Left trochanteric femoral nailing 07/15/22 -PT/OT evaluation -Continue BL SCDs for DVT PPX -AM CBC, CMP, Mag, PT/INR Repeat CBC after transfusion pending Reviewed previous labs and OR reports as well as decorating consultant notes Admission and Anticipated Discharge Date Admission Date: July 14, 2022 Subjective Patient is post op day #1 Left intertrochanteric femoral nail due to hip fracture. She had bronchospasms post operatively when she returned to the floor from PACU. She was transferrred to [facility] floor and had negative EKG and Troponin. She was given an albuterol breathing treatment with improvement in her sxs. Her blood count dropped from 13 to 8 and she was ordered a 2 unit blood transfusion. Patient has had 1 unit thus far. She ate a normal breakfast. She is complaining of left hip/groin and thigh pain. She is using ice and states this helps along with the pain meds. Review of Systems Review of Systems: Denies current fever, chills, headache, changes in vision, hearing, taste, and smell, chest pain, SOB, cough, abdominal pain, vomiting, diarrhea, hematemesis, melena, dysuria, hematuria All systems have been reviewed and are otherwise negative unless stated positive above. Physical Exam Constitutional: WD/WN, vitals as above Neck: trachea midline, no thyromegaly Respiratory: normal respiratory effort, lungs clear to auscultation Cardiovascular: Rate/Rhythm: regular rate and regular rhythm Heart Sounds: normal S1 and normal S2 Gastrointestinal (Abdomen): normal bowel sounds, soft, nontender, no hepatosplenomegaly Musculoskeletal: Surgical dressing clean and dry left hip DP and PT pulses +2 symmetric, intact sensation Skin: no rashes, warm and dry Psychiatric: A+Ox3, euthymic affect Results & Data Results & Data ([facility]) Vital Signs (Past 12 Hours) Vital Signs Temp Pulse Pulse Pulse Resp BP BP 07/16/22 08:30 37.5 C 91 H 93/62 L 07/16/22 08:00 37.4 C 83 20 105/71 07/15/22 22:00 07/16/22 07:30 36.8 C 80 20 99/63 L 07/16/22 07:00 36.6 C 86 20 101/58 L 07/16/22 07:00 36.6 C 86 20 101/58 L 07/16/22 06:45 36.9 C 81 18 100/66 07/16/22 06:26 36.9 C 80 18 91/61 L 07/16/22 03:01 37 C 84 18 103/62 07/15/22 21:58 86 07/15/22 21:32 102 H 07/16/22 01:34 96 H 97/64 L 07/15/22 23:39 37.3 C 101 H 16 85/50 L 07/15/22 23:03 36.9 C 96 H 18 89/60 L 07/15/22 21:15 37.1 C 101 H 18 92/62 L Pulse Ox O2 Del Method O2 Flow Rate 07/16/22 08:30 98 07/16/22 08:00 99 07/15/22 22:00 Nasal Cannula 1 07/16/22 07:30 99 2 07/16/22 07:00 99 1 07/16/22 07:00 99 07/16/22 06:45 100 07/16/22 06:26 99 07/16/22 03:01 97 Nasal Cannula 2 07/15/22 21:58 07/15/22 21:32 07/16/22 01:34 07/15/22 23:39 96 Nasal Cannula 2 07/15/22 23:03 97 Nasal Cannula 1 07/15/22 21:15 94 Nasal Cannula 1 Laboratory Results Abnormal lab results 07/14/22 07/15/22 07/16/22 Range/Units 15:59 07:52 01:38 Hgb 8.0 L D (12.0-16.0) g/dl Hct 24.0 L (37.0-47.0) % Sodium 134 L (136-145) mmol/L BUN 24 H (6-23) mg/dl Creatinine 1.24 H (0.6-1.2) mg/dl Glucose 105 H (70-99(Fasting)) mg/dl Total Protein 5.7 L D (6.0-8.3) gm/dl Globulin 2.3 L (2.5-4.0) gm/dl Crossmatch See Detail Diagnostic Findings Hip X-Ray 07/15/22 14:30 FL hip LT 2-3V CLINICAL HISTORY: LT TROCH NAIL COMPARISON STUDY: Pelvis and left hip radiographs July 14, 2022. FLUOROSCOPY TIME: 91.8 seconds. EXPOSURE DOSE: 18.04 mGy FLUOROSCOPIC IMAGES: 4 FINDINGS: Fluoroscopy was provided during open reduction and internal fixation of the intertrochanteric fracture of the left femur with trochanteric nail and intramedullary viola. Fracture alignment has markedly improved and appears near anatomic. The hardware is intact. Distal screw is present. There are no unexpected radiopaque foreign bodies. IMPRESSION: Fluoroscopy provided during internal fixation of the intertrochanteric fracture of the left femur. ACT 112: Negative or not required by law. Electronically signed by: Juan Carlos Carreno M.D. 07/15/2022 4:19 PM PG Care Time/CCT Total # of Minutes Spent Total Time Spent with Patient: Total time spent is greater than 50% in coordination of care (as documented) at patient's floor/unit and/or counseling patient: Coding Level of Care Code 89533 SUB INP/OBS CARE Diagnoses Closed fracture of left hip S72.002A Encounter type: initial encounter Hypothyroidism E03.9 Hypercholesterolemia E78.00 Hypertension I10 Hypertension type: primary hypertension Benign paroxysmal positional vertigo H81.10 ABLA (acute blood loss anemia) D62 (1) Closed fracture of left hip Encounter type: initial encounter Qualified Code(s): S72.002A - Fracture of unspecified part of neck of left femur, initial encounter for closed fracture (4) Hypertension Hypertension type: primary hypertension Qualified Code(s): I10 - Essential (primary) hypertension
[2022-07-16] MEDS: SODIUM CHLORIDE 0.9% 1000ML 1,000 ML IV SCH (09:29)
--- NOTE | 2022-07-16 11:23 | Orthopedic Progress Note ---
Date of Service July 16, 2022 Assessment & Plan (1) Closed fracture of left hip: Plan: Patient is POD #1 from left TFN performed by Dr. Valdez. -Patient may be WBAT, PT/OT -ASA BID, Tray Honoris, and SCDs -Pain regime as ordered -Dressing to remain in place until tomorrow. Admission and Anticipated Discharge Date Admission Date: July 14, 2022 Subjective Patient is POD #1 from TFN yesterday with Dr. Valdez. Post-operatively she was transferred to [facility] for bronchospasms that did resolve after some albuterol treatments. This morning she was found to have drop in her Hgb from 13 to 8 and SBP in the 90s. Patient received 1u of blood already and is ordered another unit as well. This morning she is resting in bed and does complain of left hip pain that does radiate to her groin. States that ice packs and current pain regime are helping. Physical Exam 2 Physical Exam: Appropriate TTP over left hip and groin, thigh with slight swelling that is consistent with surgery however compartments are soft. Surgical sites are clean, dry, and intact without signs of acute infection and dressing are in place. Limited ROM of left knee and hip secondary to pain. Able to wiggle toes without issue and has full ROM of left ankle, capillary refill less than 2 seconds and is NVI. Results & Data ([facility]) Vital Signs (Past 12 Hours) Vital Signs Temp Pulse Pulse Pulse Resp BP BP 07/16/22 10:20 36.4 C L 84 20 107/67 07/16/22 09:19 36.5 C 88 18 99/65 L 07/16/22 08:30 37.5 C 91 H 93/62 L 07/16/22 08:00 37.4 C 83 20 105/71 07/16/22 07:30 36.8 C 80 20 99/63 L 07/16/22 07:00 36.6 C 86 20 101/58 L 07/16/22 07:00 36.6 C 86 20 101/58 L 07/16/22 06:45 36.9 C 81 18 100/66 07/16/22 06:26 36.9 C 80 18 91/61 L 07/16/22 03:01 37 C 84 18 103/62 07/16/22 01:34 96 H 97/64 L 02/23/23 23:39 37.3 C 101 H 16 85/50 L Pulse Ox O2 Del Method O2 Flow Rate 07/16/22 10:20 97 2 07/16/22 09:19 98 2 07/16/22 08:30 98 07/16/22 08:00 99 07/16/22 07:30 99 2 07/16/22 07:00 99 1 07/16/22 07:00 99 07/16/22 06:45 100 07/16/22 06:26 99 07/16/22 03:01 97 Nasal Cannula 2 07/16/22 01:34 07/15/22 23:39 96 Nasal Cannula 2 Laboratory Results Laboratory Results WBC 7.19 K/ul (4.8-10.8) 07/14/22 13:23 RBC 4.35 M/uL (4.20-5.40) 07/14/22 13:23 Hgb 8.0 g/dl (12.0-16.0) L D 07/16/22 01:38 Hct 24.0 % (37.0-47.0) L 07/16/22 01:38 MCV 93.8 fL (80.0-100.0) 07/14/22 13:23 MCH 31.5 pg (25.0-34.0) 07/14/22 13:23 MCHC 33.6 g/dL (32.0-36.0) 07/14/22 13:23 RDW Std Deviation 42.7 fL (36.4-46.3) 07/14/22 13:23 RDW Coeff of Mikayla 12.3 % (11.5-14.5) 07/14/22 13:23 Plt Count 196 K/uL (130-400) 07/14/22 13:23 MPV 11.5 fL (9.4-12.4) 07/14/22 13:23 Immature Gran % (Auto) 0.6 % 07/14/22 13:23 Neut % (Auto) 61.8 % 07/14/22 13:23 Lymph % (Auto) 28.0 % 07/14/22 13:23 [place] % (Auto) 7.9 % 07/14/22 13:23 Eos % (Auto) 1.0 % 07/14/22 13:23 Baso % (Auto) 0.7 % 07/14/22 13:23 Neut # (Auto) 4.45 K/uL (1.40-6.50) 07/14/22 13:23 Lymph # (Auto) 2.01 K/uL (1.2-3.4) 07/14/22 13:23 [place] # (Auto) 0.57 K/uL (0.11-0.59) 07/14/22 13:23 Eos # (Auto) 0.07 K/uL (0-0.50) 07/14/22 13:23 Baso # (Auto) 0.05 K/uL (0-0.2) 07/14/22 13:23 Immature Gran # (Auto) 0.04 K/uL (0.01-0.20) 07/14/22 13: PT 10.8 Seconds (9.0-12.0) 07/14/22 13: INR 1.0 (0.9-1.1) 07/14/22 13: Sodium 134 mmol/L (136-145) L 07/15/22 07:52 Potassium 4.2 mmol/L (3.5-5.1) 07/15/22 07:52 Chloride 102 mmol/L (98-107) 07/15/22 07:52 Carbon Dioxide 27 mmol/L (21-32) 07/15/22 07:52 Anion Gap 5 (3-11) 07/15/22 07:52 BUN 24 mg/dl (6-23) H 07/15/22 07:52 Creatinine 1.24 mg/dl (0.6-1.2) H 07/15/22 07:52 Est Cr Clr Drug Dosing 33.8 ml/min 07/15/22 07:52 Est GFR ( Amer) 49.2 ml/min 07/15/22 07:52 Est GFR (Non-Af Amer) 42.5 ml/min 07/15/22 07:52 BUN/Creatinine Ratio 19.4 (10-20) 07/15/22 07:52 Glucose 105 mg/dl (70-99(Fasting)) H 07/15/22 07:52 Calcium 8.9 mg/dl (8.5-10.1) 07/15/22 07:52 Magnesium 1.7 mg/dl (1.7-2.4) 07/15/22 07:52 Total Bilirubin 0.5 mg/dl (0.2-1.0) 07/15/22 07:52 AST 27 U/L (13-39) 07/15/22 07:52 ALT 22 U/L (7-52) 07/15/22 07:52 Alkaline Phosphatase 61 U/L (34-104) 07/15/22 07:52 Troponin I High Sens 7.1 pg/ml (0-14) 07/15/22 18:32 Total Protein 5.7 gm/dl (6.0-8.3) L D 07/15/22 07:52 Albumin 3.4 gm/dl (3.4-5.0) 07/15/22 07:52 Globulin 2.3 gm/dl (2.5-4.0) L 07/15/22 07:52 Albumin/Globulin Ratio 1.5 (0.9-2) 07/15/22 07:52 25-OH Vitamin D Total 44.9 ng/ml (30-100) 07/15/22 07:52 SARS-CoV-2, RNA, NAAT NEGATIVE (NEGATIVE) 07/14/22 13:41 Blood Type O Positive 07/14/22 15:59 Antibody Screen NEGATIVE 07/14/22 15:59 Crossmatch See Detail 07/14/22 15:59 Impressions Chest X-Ray 07/14/22 12:58 XR chest 1V not portable HISTORY: Left hip fracture. Preop. fall COMPARISON: Chest 12/17/2013. FINDINGS: Mild elevation of the right hemidiaphragm which may be positional. The lungs are clear. The cardiac silhouette is top normal in size. This mildly tortuous thoracic aorta. No pleural effusions. No pneumothorax. No evidence for pulmonary edema. IMPRESSION: No acute process. Hip/Pelvis X-Ray 07/14/22 12:58 XR hip LT 2V w pelvis CLINICAL HISTORY: Left hip pain following fall. COMPARISON: CT of the abdomen and pelvis March 22, 2014. FINDINGS: Sacroiliac joints and symphysis pubis are intact. Note is made of an acute comminuted and displaced intertrochanteric fracture of the left femur. There is mild subtrochanteric extension. Fracture is angulated. No additional acute fractures are present. IMPRESSION: Acute comminuted displaced intertrochanteric fracture of the left femur. Hip X-Ray 07/15/22 14:30 FL hip LT 2-3V CLINICAL HISTORY: LT TROCH NAIL COMPARISON STUDY: Pelvis and left hip radiographs July 14, 2022. FLUOROSCOPY TIME: 91.8 seconds. EXPOSURE DOSE: 18.04 mGy FLUOROSCOPIC IMAGES: 4 FINDINGS: Fluoroscopy was provided during open reduction and internal fixation of the intertrochanteric fracture of the left femur with trochanteric nail and intramedullary viola. Fracture alignment has markedly improved and appears near anatomic. The hardware is intact. Distal screw is present. There are no unexpected radiopaque foreign bodies. IMPRESSION: Fluoroscopy provided during internal fixation of the intertrochanteric fracture of the left femur. (1) Closed fracture of left hip Encounter type: initial encounter Qualified Code(s): S72.002A - Fracture of unspecified part of neck of left femur, initial encounter for closed fracture
--- NOTE | 2022-07-16 11:31 | Electrocardiogram Report ---
Test Reason : Blood Pressure : / mmHG Vent. Rate : 091 BPM Atrial Rate : 091 BPM P-R Int : 152 ms QRS Dur : 060 ms QT Int : 348 ms P-R-T Axes : 047 -01 040 degrees QTc Int : 428 ms Poor data quality, interpretation may be adversely affected Normal sinus rhythm Low voltage QRS Borderline ECG When compared with ECG of 14-JUL-2022 13:31, No significant change was found Confirmed by Kelvin Solomon ([id number]) on 07/16/2022 11:31:06 AM Referred By: REFERRED SELF Confirmed By:Michael Solomon
--- NOTE | 2022-07-16 15:27 | Operative Report ---
Post Operative Report Pre & Post Diagnosis Operation Date: 07/15/22 07:00 Pre-Op Diagnosis: Left intertrochanteric hip fracture Post-Op Diagnosis: Left intertrochanteric hip fracture I identified the patient and participated in the time-out.: Yes Procedure Operation Date: 07/15/22 07:00 Actual Procedures p Left Tronchanteric Femoral Nail(Left) - Neil Valdez DO Surgeon Neil Valdez DO [employer]rier Shop Supervisor Federico Monterroso PA-C Estimated Blood Loss 50 Findings Consistent with Post-Op Diagnosis see dication Specimens none Complications none Indications 76-year-old female presenting to [facility] emergency department after sustaining a ground-level fall onto her left hip. Radiographs obtained concerning intertrochanteric femur fracture. She was admitted to medical service and orthopedics was consulted for operative management. Preoperatively I had a lengthy discussion with the patient regarding risk benefits potential complications of the left hip supplementary nail. These include not limited to: Infection,Neurovascular injury, DVT, nonunion, malunion, hardware failure, and need for future surgery. After reviewing these she elected proceed surgical intervention and written and sent was obtained. Description of Procedure Implants: Synthes TNFa 11mm x 360mm, 95mm TFNa fenestrated screw, 5.0mm x 38mm Stardrive Locking Screw. Patient was appropriate identified in the preoperative holding area and the left lower extremity was marked. She was then taken to the operative suite where she received spinal anesthesia. She was then transferred over to the manual fract ure table. She received antibiotics per protocol. Using the assistance of fluoroscopy for fracture was reduced to satisfactory position. She was then prepped and draped in the standard orthopedic fashion a timeout was then performed. A 3 cm incision was then made over the tip the trochanter. Incision was made through skin subcutaneous tissue and gluteal fascia. A threaded guidewire was then advanced into the tip the trochanter into the medullary canal. Its position was confirmed on AP and lateral fluoroscopy. Canal opening reamer was then used. A ball-tipped guidewire was then inserted through the opening and advanced into the distal fracture segment distally to the knee. Length was then measured and a 306 mm implant was then selected. The canal was then sequentially reamed up to a size 4.5 mm reamer to accommodate an 11 mm x 360 mm cephalomedullary nail. Cephalomedullary nail was then inserted over the guidewire and the ball-tipped guidewire was then removed. Once the nail was in satisfactory position proximal outrigger was then attached and incision was made for the lag screw through skin subcutaneous tissue and IT band fascia. Drill sleeve was then advanced down to the lateral cortex of the femur. A threaded guidewire was then advanced into the lateral cortex into the femoral head and a center center position just beneath the subchondral bone. This position was confirmed on AP and lateral fluoroscopy. Length was then measured for a 95 mm lag screw. Lateral cortical reamer was first used followed by tapered reamers up to 95 mm. A 95 mm fenestrated lag screw was then inserted over the threaded guidewire. The implant was then compressed and locked statically at the proximal aspect. This achieved good reduction and position of the implant. Proximal outrigger was then removed and attention was turned to the distal interlock. Using assistance of [place] fluoroscopy the most proximal static distal interlock was then localized under [place] fluoroscopy, incision was made, and it was drilled bicortically. Length of the screw was then measured and a 5 mm x 38 mm star drive locking screw was then inserted. This was noted to have good backward purchase. Final radiographs were then obtained demonstrating good reduction of fracture and positioning of the implant. Wounds were then copiously irrigated using normal saline solution. Deep fascia closed using 0 Vicryl followed by 2-0 Vicryl for subcutaneous tissue and [place] for the skin. Sterile dressing of Xeroform 4 x 4 gauze and OpSite was applied to each incision. Patient tolerated procedure well was taken recovery room in hemodynamically stable condition. Federico Monterroso PA-C was present for the duration of the case. He assisted in patient positioning, soft tissue exposure as well as surgical closure. I attest to the content of the Intraoperative Record and any orders documented therein. Any exceptions are noted below.
[2022-07-16 16:51] LABS: Albumin Globulin Ratio 1.4 (0.9-2); Albumin Level 3.3 gm/dl (3.4-5.0); Bilirubin,Total 0.6 mg/dl (0.2-1.0); Calcium 8.6 mg/dl (8.5-10.1); Creatinine Clr Calc Pharmacy 37.2 ml/min; Est GFR (African American) 55.1 ml/min; Est GFR (Non-African American) 47.5 ml/min; Globulin 2.4 gm/dl (2.5-4.0); Potassium 4.2 mmol/L (3.5-5.1); Total Protein 5.7 gm/dl (6.0-8.3)
[2022-07-16 18:36] LABS: Basophils # (auto) 0.04 K/uL (0-0.2); Basophils % (auto) 0.6 %; Eosinophils # (auto) 0.15 K/uL (0-0.50); Eosinophils % (auto) 2.4 %; Hematocrit (blood only) 32.3 % (37.0-47.0); Immature Granulocytes # (auto) 0.02 K/uL (0.01-0.20); Immature Granulocytes % (auto) 0.3 %; Lymphocytes # (auto) 1.14 K/uL (1.2-3.4); Lymphocytes % (auto) 18.4 %; Mean Corpuscular Hemoglobin 30.8 pg (25.0-34.0); Mean Corpuscular Hgb Conc 34.1 g/dL (32.0-36.0); Mean Corpuscular Volume 90.5 fL (80.0-100.0); Mean Platelet Volume 11.5 fL (9.4-12.4); Monocytes # (auto) 0.85 K/uL (0.11-0.59); Monocytes % (auto) 13.7 %; Neutrophils % (auto) 64.6 %; Platelet Count 107 K/uL (130-400); Red Blood Count 3.57 M/uL (4.20-5.40)
[2022-07-16] MEDS: ACETAMINOPHEN 500 MG TAB PO SCH (18:36)
[2022-07-16] MEDS: ATORVASTATIN 40 MG TAB PO SCH (20:32)
[2022-07-16] MEDS: DOCUSATE SODIUM/SENNA 50/8.6MG TAB PO SCH (20:34)
[2022-07-17] MEDS: ACETAMINOPHEN 500 MG TAB PO SCH ×3 (02:08→17:03)
[2022-07-17] MEDS: LEVOTHYROXINE SODIUM 75 MCG TABLET PO SCH (05:40)
[2022-07-17 07:15] LABS: Albumin Globulin Ratio 1.3 (0.9-2); Bilirubin,Total 0.5 mg/dl (0.2-1.0); Calcium 8.6 mg/dl (8.5-10.1); Creatinine Clr Calc Pharmacy 43.9 ml/min; Est GFR (African American) 63.8 ml/min; Est GFR (Non-African American) 55.1 ml/min; Globulin 2.4 gm/dl (2.5-4.0); Potassium 4.2 mmol/L (3.5-5.1); Total Protein 5.4 gm/dl (6.0-8.3)
[2022-07-17 07:17] LABS: Hematocrit (blood only) 31.9 % (37.0-47.0); Hemoglobin 10.7 g/dl (12.0-16.0); Mean Corpuscular Hemoglobin 30.6 pg (25.0-34.0); Mean Corpuscular Hgb Conc 33.5 g/dL (32.0-36.0); Mean Corpuscular Volume 91.1 fL (80.0-100.0); Mean Platelet Volume 11.4 fL (9.4-12.4); Platelet Count 99 K/uL (130-400); Platelet Estimate Decreased (Normal); RDW Coefficient of Variation 14.2 % (11.5-14.5); RDW Standard Deviation 47.8 fL (36.4-46.3); White Blood Count 5.68 K/ul (4.8-10.8)
--- NOTE | 2022-07-17 07:59 | Orthopedic Progress Note ---
Date of Service July 17, 2022 Assessment & Plan (1) Closed fracture of left hip: Plan: Patient is POD #2 from left TFN performed by Dr. Valdez, doing well this morning -Post-op anemia has improved, hgb up to 10.7 this morning from 8.0 s/p 2 units PRBC -Dressings changed at bedside today. Continue dressing changes as needed with adaptic and 4x4s and MARLON bandage -Patient may be WBAT, PT/OT -DVT ppx with ASA BID, TEDs/SCDs -Pain regime as ordered Follow-up with Dr. Valdez or KRISTY Pennington at [facility] orthopedic surgery clinic 10-14 days post-operatively. Please call [facility] at [phone] to make an appointment. Orthopedics will sign off at this time. Please call with any additional questions or concerns. Admission and Anticipated Discharge Date Admission Date: July 14, 2022 Subjective Doing well this morning, though does note pain in her left hip and groin, appropriate for post-op status. Otherwise, feeling better since receiving blood yesterday. Denies lightheadedness, dizziness, chest pain, shortness of breath or other acute complaints. Physical Exam Physical Exam: General: Pleasant. Resting in bed, no acute distress Neuro: Awake, alert and oriented x 3 Left hip/lower extremity: Thigh is edematous and mildly tender appropriate for post-op status, compartments remain soft. Incision sites with [place] in place, no surrounding erythema, wound dehiscence or abnormal drainage. ROM of the hip limited secondary to pain and recent procedure. Toes and ankle are mobile, sensation and d/p pulse intact Results & Data ([facility]) Vital Signs (Past 12 Hours) Vital Signs Temp Pulse Pulse Pulse Resp BP BP 07/17/22 07:45 36.4 C L 81 18 113/74 07/17/22 07:17 91 H 07/17/22 04:44 36.6 C 86 18 112/75 07/17/22 01:17 76 07/17/22 00:50 07/16/22 22:59 36.7 C 76 16 95/64 L Pulse Ox O2 Del Method O2 Flow Rate 07/17/22 07:45 96 Room Air 07/17/22 07:17 07/17/22 04:44 95 Nasal Cannula 1 07/17/22 01:17 07/17/22 00:50 95 Nasal Cannula 1 07/16/22 22:59 90 Room Air Laboratory Results Laboratory Tests 07/17/22 07/17/22 05:54 05:54 WBC 5.68 RBC 3.50 L Hgb 10.7 L Hct 31.9 L Sodium 137 Potassium 4.2 Chloride 106 BUN 14 Creatinine 1.00 (1) Closed fracture of left hip Encounter type: initial encounter Qualified Code(s): S72.002A - Fracture of unspecified part of neck of left femur, initial encounter for closed fracture
[2022-07-17] MEDS: LIDOCAINE 5% 1 PATCH TD SCH (08:16)
[2022-07-17] MEDS: ASPIRIN 81 MG ECTAB PO SCH ×2 (08:16→20:16)
[2022-07-17] MEDS: CYCLOBENZAPRINE HCL 10 MG TAB PO SCH ×3 (08:25→20:22)
[2022-07-17] MEDS: MoRPHine SULFATE 2 MG/ML CARP IV PRN (08:26)
--- NOTE | 2022-07-17 08:28 | Hospitalist Progress Note ---
Date of Service July 17, 2022 Assessment & Plan (1) Closed fracture of left hip: Plan: -Admitted to med/surge -The patient is currently afebrile, hemodynamically stable and stable on RA - 96% -The patient sustained a mechanical fall on the ice/slush in the [employer]'s parking lot 07/14/22 -No other acute injuries and no concerning symptoms prior to her fall to suggest another etiology -The patient was evaluated by Orthopedics who took her to the OR on 07/15/22 -Patient with Evans's traction, applied in ER -Continue pain control with the following: >PO tylenol 650 mg q6h scheduled >Lidocaine patch and ice >Flexeril 10 mg PO TID >Oxycodone 5mg for pain 1-5 and 10mg for pain 6-10 q 4h prn pain -S/P Left intertrochanteric femoral nail 07/15/22 Ortho recommended WBAT, PT/OT ASA BID Tray Hose and SCDs (2) Hypothyroidism: Plan: -Continue levothyroxine -Last TSH 02/2022 was 1.115 (3) Hypercholesterolemia: Plan: -Continue statin (4) Hypertension: Plan: -Lisinopril-HCTZ 20.5 was on hold for hypotension -BP 116/78 (5) Benign paroxysmal positional vertigo: Plan: -Will hold prn meclizine for now to avoid over-sedation (6) ABLA (acute blood loss anemia): Plan: - Hgb dropped from 13 to 8 post operatively - EBL documented at 50 - 2 Unit transfusion ordered - Hgb improved to 10.7 Plan The patient was discussed with Dr. Madden -Ortho consulted and S/P Left trochanteric femoral nailing 07/15/22 -PT/OT evaluation - WBAT -PT recommend inpatient rehab stay upon discharge -Bed available Tuesday at -Continue BL SCDs for DVT PPX -AM CBC, CMP, Mag, PT/INR Repeat CBC after transfusion pending Reviewed previous labs and OR reports as well as sap plant maintenance consultant notes Admission and Anticipated Discharge Date Admission Date: July 14, 2022 Subjective Patient is awake in bed and visiting with family at bedside. Patient states she had some slight nausea earlier after the po pain medication but is feeling fine now. Review of Systems Review of Systems: Denies current fever, chills, headache, changes in vision, hearing, taste, and smell, chest pain, SOB, cough, abdominal pain, vomiting, diarrhea, hematemesis, melena, dysuria, hematuria All systems have been reviewed and are otherwise negative unless stated positive above. Physical Exam Constitutional: WD/WN, vitals as above Neck: trachea midline, no thyromegaly Respiratory: normal respiratory effort, lungs clear to auscultation Cardiovascular: Rate/Rhythm: regular rate and regular rhythm Heart Sounds: normal S1 and normal S2 Gastrointestinal (Abdomen): normal bowel sounds, soft, nontender, no hepatosplenomegaly Musculoskeletal: Left hip dressing clean and dry ice applied Skin: no rashes, warm and dry Psychiatric: A+Ox3, euthymic affect Results & Data Results & Data ([facility]) Vital Signs (Past 12 Hours) Vital Signs Temp Pulse Pulse Pulse Resp BP BP 07/17/22 07:45 36.4 C L 81 18 113/74 07/17/22 07:17 91 H 07/17/22 04:44 36.6 C 86 18 112/75 07/17/22 01:17 76 07/17/22 00:50 07/16/22 22:59 36.7 C 76 16 95/64 L Pulse Ox O2 Del Method O2 Flow Rate 07/17/22 07:45 96 Room Air 07/17/22 07:17 07/17/22 04:44 95 Nasal Cannula 1 07/17/22 01:17 07/17/22 00:50 95 Nasal Cannula 1 07/16/22 22:59 90 Room Air Laboratory Results Abnormal lab results 07/14/22 07/16/22 07/16/22 Range/Units 15:59 15:57 15:57 RBC 3.57 L (4.20-5.40) M/uL Hgb 11.0 L D (12.0-16.0) g/dl Hct 32.3 L (37.0-47.0) % RDW Std Deviation 47.0 H (36.4-46.3) fL Plt Count 107 L (130-400) K/uL Lymph # (Auto) 1.14 L (1.2-3.4) K/uL [place] # (Auto) 0.85 H (0.11-0.59) K/uL Platelet Estimate (Normal) Anion Gap (3-11) Total Protein 5.7 L (6.0-8.3) gm/dl Albumin 3.3 L (3.4-5.0) gm/dl Globulin 2.4 L (2.5-4.0) gm/dl Crossmatch See Detail 07/17/22 07/17/22 Range/Units 05:54 05:54 RBC 3.50 L (4.20-5.40) M/uL Hgb 10.7 L (12.0-16.0) g/dl Hct 31.9 L (37.0-47.0) % RDW Std Deviation 47.8 H (36.4-46.3) fL Plt Count 99 L (130-400) K/uL Lymph # (Auto) (1.2-3.4) K/uL [place] # (Auto) (0.11-0.59) K/uL Platelet Estimate Decreased L (Normal) Anion Gap 2 L (3-11) Total Protein 5.4 L (6.0-8.3) gm/dl Albumin 3.0 L (3.4-5.0) gm/dl Globulin 2.4 L (2.5-4.0) gm/dl Crossmatch PG Care Time/CCT Total # of Minutes Spent Total Time Spent with Patient: Total time spent is greater than 50% in coordination of care (as documented) at patient's floor/unit and/or counseling patient: Coding Level of Care Code 18185 SUB INP/OBS CARE 235MIN Diagnoses Closed fracture of left hip S72.002A Encounter type: initial encounter Hypothyroidism E03.9 Hypercholesterolemia E78.00 Hypertension I10 Hypertension type: primary hypertension Benign paroxysmal positional vertigo H81.10 ABLA (acute blood loss anemia) D62 (1) Closed fracture of left hip Encounter type: initial encounter Qualified Code(s): S72.002A - Fracture of unspecified part of neck of left femur, initial encounter for closed fracture (4) Hypertension Hypertension type: primary hypertension Qualified Code(s): I10 - Essential (primary) hypertension
[2022-07-17] MEDS: oxyCODONE HCL IR 5 MG TAB (IMMEDIATE RELEASE) PO PRN ×2 (11:03→17:03)
[2022-07-17] MEDS: ATORVASTATIN 40 MG TAB PO SCH (20:16)
[2022-07-17] MEDS: DOCUSATE SODIUM/SENNA 50/8.6MG TAB PO SCH (20:23)
[2022-07-18] MEDS: ACETAMINOPHEN 500 MG TAB PO SCH ×2 (02:12→09:56)
[2022-07-18] MEDS: oxyCODONE HCL IR 5 MG TAB (IMMEDIATE RELEASE) PO PRN ×5 (03:14→23:54)
[2022-07-18] MEDS: LEVOTHYROXINE SODIUM 75 MCG TABLET PO SCH (05:54)
--- NOTE | 2022-07-18 08:30 | Hospitalist Progress Note ---
Date of Service July 18, 2022 Assessment & Plan (1) Closed fracture of left hip: Plan: -Admitted to med/surge -The patient is currently afebrile, hemodynamically stable and stable on RA - 98% -The patient sustained a mechanical fall on the ice/slush in the [employer]'s parking lot 07/14/22 -No other acute injuries and no concerning symptoms prior to her fall to suggest another etiology -The patient was evaluated by Orthopedics who took her to the OR on 07/15/22 -Patient had Evans's traction, applied in ER -Continue pain control with the following: >PO tylenol as needed >Lidocaine patch and ice >Flexeril 10 mg PO TID >Oxycodone 5mg for pain 1-5 and 10mg for pain 6-10 q 4h prn pain -S/P Left intertrochanteric femoral nail 07/15/22 Ortho recommended WBAT, PT/OT ASA BID Tray Hose and SCDs (2) Hypothyroidism: Plan: -Continue levothyroxine -Last TSH 02/2022 was 1.115 (3) Hypercholesterolemia: Plan: -Continue statin (4) Hypertension: Plan: -Lisinopril-HCTZ 11/05.5 was on hold for hypotension -BP 109/68 (5) Benign paroxysmal positional vertigo: Plan: -Will hold prn meclizine for now to avoid over-sedation (6) ABLA (acute blood loss anemia): Plan: - Hgb dropped from 13 to 8 post operatively - EBL documented at 50 - 2 Unit transfusion ordered - Hgb improved to 10.7 yesterday Plan The patient was discussed with Dr. Madden -Ortho consulted and S/P Left trochanteric femoral nailing 07/15/22 -PT/OT evaluation - WBAT -PT recommend inpatient rehab stay upon discharge -Bed available Tuesday at -Continue BL SCDs for DVT PPX -AM CBC, CMP, Mag, PT/INR Reviewed previous labs and OR reports as well as senior treasury consultant notes Admission and Anticipated Discharge Date Admission Date: July 14, 2022 Subjective Patient is awake sitting up in the recliner. She is still uncomfortable in her left groin but is feeling better today compared to yesterday. She is passing flatus but no BM. No N/V and is eating well. Review of Systems Review of Systems: Denies current fever, chills, headache, changes in vision, hearing, taste, and smell, chest pain, SOB, cough, abdominal pain, vomiting, diarrhea, hematemesis, melena, dysuria, hematuria All systems have been reviewed and are otherwise negative unless stated positive above. Physical Exam Constitutional: WD/WN, vitals as above Neck: trachea midline, no thyromegaly Respiratory: normal respiratory effort, lungs clear to auscultation Cardiovascular: Rate/Rhythm: regular rate and regular rhythm Heart Sounds: normal S1 and normal S2 Gastrointestinal (Abdomen): normal bowel sounds, soft, nontender, no hepatosplenomegaly Musculoskeletal: dressing left hip clean and dry ice in place Skin: no rashes, warm and dry Psychiatric: A+Ox3, euthymic affect Results & Data Results & Data ([facility]) Vital Signs (Past 12 Hours) Vital Signs Temp Pulse Pulse Resp BP BP Pulse Ox 07/18/22 07:00 07/18/22 06:57 70 07/18/22 06:20 36.5 C 70 18 94 07/18/22 03:10 36.7 C 74 18 109/68 108/60 92 07/17/22 22:02 81 07/17/22 22:40 36.5 C 78 18 102/68 93 Pulse Ox O2 Del Method O2 Del Method 07/18/22 07:00 97 Room Air 07/18/22 06:57 07/18/22 06:20 Room Air 07/18/22 03:10 Room Air 07/17/22 22:02 07/17/22 22:40 Room Air PG Care Time/CCT Total # of Minutes Spent Total Time Spent with Patient: Total time spent is greater than 50% in coordination of care (as documented) at patient's floor/unit and/or counseling patient: Coding Level of Care Code 69005 SUB INP/OBS CARE 2/35MIN Diagnoses Closed fracture of left hip S72.002A Encounter type: initial encounter Hypothyroidism E03.9 Hypercholesterolemia E78.00 Hypertension I10 Hypertension type: primary hypertension Benign paroxysmal positional vertigo H81.10 ABLA (acute blood loss anemia) D62 (1) Closed fracture of left hip Encounter type: initial encounter Qualified Code(s): S72.002A - Fracture of unspecified part of neck of left femur, initial encounter for closed fracture (4) Hypertension Hypertension type: primary hypertension Qualified Code(s): I10 - Essential (primary) hypertension
[2022-07-18] MEDS: ASPIRIN 81 MG ECTAB PO SCH ×2 (08:42→21:15)
[2022-07-18] MEDS: LIDOCAINE 5% 1 PATCH TD SCH (08:42)
[2022-07-18] MEDS: CYCLOBENZAPRINE HCL 10 MG TAB PO SCH ×3 (08:44→21:17)
[2022-07-18] MEDS ORDERED: ACETAMINOPHEN 500 MG TAB PO PRN (10:15)
[2022-07-18] MEDS: MoRPHine SULFATE 2 MG/ML CARP IV PRN (19:56)
[2022-07-18] MEDS: ATORVASTATIN 40 MG TAB PO SCH (21:15)
[2022-07-18] MEDS: DOCUSATE SODIUM/SENNA 50/8.6MG TAB PO SCH (21:17)
[2022-07-19] MEDS: LEVOTHYROXINE SODIUM 75 MCG TABLET PO SCH (06:16)
[2022-07-19] MEDS: LIDOCAINE 5% 1 PATCH TD SCH (08:14)
[2022-07-19] MEDS: CYCLOBENZAPRINE HCL 10 MG TAB PO SCH ×2 (08:14→13:01)
[2022-07-19] MEDS: ASPIRIN 81 MG ECTAB PO SCH (08:14)
[2022-07-19] MEDS: oxyCODONE HCL IR 5 MG TAB (IMMEDIATE RELEASE) PO PRN ×2 (08:14→13:01)
[2022-07-19] MEDS ORDERED: LISINOPRIL/HCTZ 20/12.5MG 1 TAB TAB PO SCH (09:00)
--- NOTE | 2022-07-19 12:06 | Hospitalist Progress Note ---
Date of Service July 19, 2022 Assessment & Plan (1) Closed fracture of left hip: Plan: -Admitted to med/surge -The patient is currently afebrile, hemodynamically stable and stable on RA - 98% -The patient sustained a mechanical fall on the ice/slush in the [employer] parking lot 07/14/22 -No other acute injuries and no concerning symptoms prior to her fall to suggest another etiology -The patient was evaluated by Orthopedics who took her to the OR on 07/15/22 -Patient had Evans's traction, applied in ER -Continue pain control with the following: >PO tylenol as needed >Lidocaine patch and ice >Flexeril 10 mg PO TID >Oxycodone 5mg for pain 1-5 and 10mg for pain 6-10 q 4h prn pain -S/P Left intertrochanteric femoral nail 07/15/22 Ortho recommended WBAT, PT/OT ASA BID Tray Hose and SCDs (2) Hypothyroidism: Plan: -Continue levothyroxine -Last TSH 02/2022 was 1.115 (3) Hypercholesterolemia: Plan: -Continue statin (4) Hypertension: Plan: -Lisinopril-HCTZ 11/05.5 was on hold for hypotension -Restart today (5) Benign paroxysmal positional vertigo: Plan: -Will hold prn meclizine for now to avoid over-sedation (6) ABLA (acute blood loss anemia): Plan: - Hgb dropped from 13 to 8 post operatively - EBL documented at 50 - 2 Unit transfusion ordered - Hgb improved appropriately after transfusion Plan The patient was discussed with Dr. Madden -Ortho consulted and S/P Left trochanteric femoral nailing 07/15/22 -PT/OT evaluation - WBAT -PT recommend inpatient rehab stay upon discharge -Bed available Tuesday at -Awaiting insurance authorization -Continue BL SCDs for DVT PPX -ASA 81mg BID -AM CBC, CMP, Mag, PT/INR Reviewed previous labs and OR reports as well as marine engineering consultant notes Admission and Anticipated Discharge Date Admission Date: July 14, 2022 Subjective Patient is awake sitting up in recliner. She is slightly tearful today because she doesn't like not being 100% independent. She does realize thought that she is improving every day. 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 She still has not had a BM, but is still passing flatus and does not wish to take anything to aid in a BM. She still has discomfort in her left groin, but is improving. Review of Systems Review of Systems: Denies current fever, chills, headache, changes in vision, hearing, taste, and smell, chest pain, SOB, cough, abdominal pain, vomiting, diarrhea, hematemesis, melena, dysuria, hematuria All systems have been reviewed and are otherwise negative unless stated positive above. Physical Exam Constitutional: WD/WN, vitals as above Neck: trachea midline, no thyromegaly Respiratory: normal respiratory effort, lungs clear to auscultation Cardiovascular: Rate/Rhythm: regular rate and regular rhythm Heart Sounds: normal S1 and normal S2 Gastrointestinal (Abdomen): normal bowel sounds, soft, nontender, no hepatosplenomegaly Skin: no rashes, warm and dry Psychiatric: A+Ox3, euthymic affect Results & Data Results & Data ([facility]) Vital Signs (Past 12 Hours) Vital Signs Temp Pulse Resp BP Pulse Ox O2 Del Method 07/19/22 11:51 36.3 C L 97 H 17 116/72 97 Room Air 07/19/22 07:41 36.7 C 103 H 20 137/86 95 Room Air PG Care Time/CCT Total # of Minutes Spent Total Time Spent with Patient: Total time spent is greater than 50% in coordination of care (as documented) at patient's floor/unit and/or counseling patient: Coding Level of Care Code None Diagnoses Closed fracture of left hip S72.002A Encounter type: initial encounter Hypothyroidism E03.9 Hypercholesterolemia E78.00 Hypertension I10 Hypertension type: primary hypertension Benign paroxysmal positional vertigo H81.10 ABLA (acute blood loss anemia) D62 (1) Closed fracture of left hip Encounter type: initial encounter Qualified Code(s): S72.002A - Fracture of unspecified part of neck of left femur, initial encounter for closed fracture (4) Hypertension Hypertension type: primary hypertension Qualified Code(s): I10 - Essential (primary) hypertension
--- NOTE | 2022-07-19 12:27 | Discharge Summary ---
Date of Service July 19, 2022 Admission HPI Per Admitting Provider Asuncion is a 76 year old female with a PMH significant for hypothyroidism, HTN, BPPV, hyperlipidemia, anxiety, and stage 3 CKD who presented to the [facility] ED on 07/14/22 with a chief complaint of fall and left hip pain. In the ED the patient was found to be afebrile, hemodynamically stable, and stable on RA. Labs were remarkable for a CBC WNL, stable cr at 1.15, sodium of 134 otherwise stable electrolytes, AST of 41 otherwise stable LFTs, and covid negative. Xray of the left hip/pelvis was read as "Acute comminuted displaced intertrochanteric fracture of the left femur.". Chest xray was read as "No acute process.". Prior to admission the patient was given 6 mg total of IV morphine, 200 mcg total of IV fentanyl, and 4mg I V zofran. Orthopedics was consulted by the ED and will take the patient to the OR tomorrow. At the time of the exam the patient was lying in bed and in obvious discomfort because of her left hip and leg pain with her sitting bedside. They state that they drove to [employer] to go grocery shopping. The patient stepped out of the car and slipped on the slush/ice landing on her right side. She denies having lightheadedness, dizziness, chest pain, palpitations, prior to or after her fall. She denies hitting her head or losing consciousness with her fall. Despite landing on her right side she experienced significant left hip pain. She has otherwise been in her normal state of health. She is currently unable to move her lower extremities without experiencing significant left hip and leg pain but does have intact sensation and motor function. She denies any head, neck, back, and other extremity pain. She wishes to be a Full code and for her Son to make medical decisions for her if she could not make them herself. When asked, she denies being told previously that she has a heart murmur. Please refer to Dr. Todd's attestation for any changes to the treatment plan Admission Exam Per Admitting Provider General:In moderate distress due to left hip pain, stated age, well-nourished, good hygiene HEENT:Normocephalic, atraumatic, no scleral icterus, pupils around round, symmetrical, and reactive to light, moist mucus membranes, trachea midline, no thyromegaly Chest/Pulm:No respiratory distress, symmetrical chest expansion, clear breath sounds throughout Cardiac:RRR,systolic murmur noted Abdomen:Negative for ascites and bruising, normoactive bowel sounds, soft, non-tender to palpation throughout Musculoskeletal:Patient with LLE currently shortened and externally rotated, left hip currently swollen and with significant visible muscle spasms overlying the injury site Extremities:Radial, dorsalis pedis, and posterior tibial pulses are intact and symmetrical, no edema noted in the BL LE's Skin:Warm, dry, no rashes , lesions, or scars noted Neuro:Alert and oriented to person, place, month, year, and president, no focal defects, CN II-XII tested and intact, no tremors noted Psych:In moderate distress, anxious but cooperative during the exam Principal Diagnosis closed fracture of left hip Discharge Exam Constitutional WD/WN, vitals as above Neck trachea midline, no thyromegaly Respiratory normal respiratory effort, lungs clear to auscultation Cardiovascular Rate/Rhythm: regular rate and regular rhythm Heart Sounds: normal S1 and normal S2 Gastrointestinal (Abdomen) normal bowel sounds, soft, nontender, no hepatosplenomegaly Skin no rashes, warm and dry Psychiatric A+Ox3, euthymic affect Discharge Data Allergies Allergy/AdvReac Type Severity Reaction Status Date / Time Sulfa (Sulfonamide Allergy Unknown . Verified 06/21/22 15:00 Antibiotics) secobarbital [From Seconal] Allergy Verified 06/21/22 15:00 mannitol [From Reclast] AdvReac Intermediate fever, Verified 06/21/22 15:00 bone pain, headache water for injection,sterile AdvReac Intermediate fever, Verified 06/21/22 15:00 [From Reclast] bone pain, headache zoledronic acid AdvReac Intermediate fever, Verified 06/21/22 15:00 [From Reclast] bone pain, headache Consultations 07/14/22 14:36 ED Decision to Admit Stat 07/14/22 14:59 Consult Orthopedic Surgery Routine Procedures Performed Operation Date: 07/15/22 07:00 Actual Procedures p Left Tronchanteric Femoral Nail(Left) - Neil Valdez DO Ordered Studies 07/15/22 14:30 FL hip LT 2-3V Routine FINDINGS: Sacroiliac joints and symphysis pubis are intact. Note is made of an acute comminuted and displaced intertrochanteric fracture of the left femur. There is mild subtrochanteric extension. Fracture is angulated. No additional acute fractures are present. IMPRESSION: Acute comminuted displaced intertrochanteric fracture of the left femur. Hospital Course (1) Closed fracture of left hip: -Admitted to med/surge -The patient is currently afebrile, hemodynamically stable and stable on RA - 97% -The patient sustained a mechanical fall on the ice/slush in the [employer] parking lot 07/14/22 -No other acute injuries and no concerning symptoms prior to her fall to suggest another etiology -The patient was evaluated by Orthopedics who took her to the OR on 07/15/22 -Patient had Evans's traction, applied in ER -Continue pain control with the following: >PO tylenol as needed >Lidocaine patch and ice >Flexeril 10 mg PO TID >Oxycodone 5mg for pain 1-5 and 10mg for pain 6-10 q 4h prn pain -S/P Left intertrochanteric femoral nail 07/15/22 Ortho recommended WBAT, PT/OT ASA BID Roni Hose and SCDs (2) Hypothyroidism: -Continue levothyroxine -Last TSH 02/2022 was 1.115 (3) Hypercholesterolemia: -Continue statin (4) Hypertension: -Lisinopril-HCTZ 20/12.5 was on hold for hypotension -Restart today (5) Benign paroxysmal positional vertigo: -Will hold prn meclizine for now to avoid over-sedation (6) ABLA (acute blood loss anemia): - Hgb dropped from 13 to 8 post operatively - EBL documented at 50 - 2 Unit transfusion ordered - Hgb improved appropriately after transfusion Plan The patient was discussed with Dr. Madden -Ortho consulted and S/P Left trochanteric femoral nailing 07/15/22 -PT/OT evaluation - WBAT -PT recommend inpatient rehab stay upon discharge -Bed available today at [facility] -Continue BL SCDs for DVT PPX -ASA 81mg BID Reviewed previous labs and OR reports as well as application security consultant notes Total Time Total Time Spent Total Time Spent (In Minutes): 35 Discharge Plan Discharge Items Patient Disposition: Transfer Inpatient Rehab Fac Reason For Visit: FALL, LEFT HIP FRACTURE Discharge Diagnosis: Fall, Left hip fracture Condition on Discharge: Fair Activity: Per Instructions section Weightbearing: Left weightbearing Non-emergency contact: Primary Care Provider and Surgeon Call non-emergency contact if: you have any medication questions, your symptoms worsen, your wound has increased redness, your wound has increased drainage and your wound pain has increased Follow-up/Referrals: Ashly Tello MD [Primary Care Provider] - Neil Valdez DO [Surgeon] - (Follow up with Dr. Valdez or Rey Pennington PA-C in 2-weeks for your post-operative visit. ) Diet: Heart Healthy Add Attending Provider Instructions: You were admitted after suffering a fall and sustaining a closed left hip fracture requiring emergent surgery. You had surgery 07/15/22 Left intertrochanteric femoral nail. Your blood count dropped slightly after surgery and you required 2 unit transfusion. Your blood count remained stable. Your blood pressure medication was held preoperatively due to some hypotension and was restarted the AM of 07/19/22. Ortho has instructions listed below Addtl Supervisor [employer] Provider Instructions: [facility] DISCHARGE INSTRUCTIONS: HIP FRACTURE SELF CARE INSTRUCTIONS: A. You are to ambulate with a walker or crutches for approximately 6 weeks. B. You are WEIGHT BEARING TOLERATE on your operative lower extremity for at least 6 weeks. C. Wear low heeled shoes with non-slip soles D. Be sure that your floors are free of things that could trip you throw rugs, electrical cords, and small objects. Avoid wet and waxed floors, especially with crutches/walker/cane. E. Try to walk several times a day with rest periods between. F. You may shower 48 hours after surgery and get the incision area wet, but DO NOT soak or submerge incision area in water. (No baths, swimming pools, hot tubs) G. You may have a large, band-aid like dressing over your incision (Aquacel). This will remain on your incision for 7 days, and then can be removed. You CAN shower with this on. If incision is leaking through the dressing, please call the office . H. Do NOT apply soap or any ointment/lotions directly over incision. I. You may use ice as needed to operative site. SPECIAL CARE INSTRUCTIONS: VERY IMPORTANT TO READ AND REVIEW A. You may be at risk for phlebitis or blood clots. a. Wear surgical stockings (RONI hose) for 2 weeks after surgery to improve circulation and reduce swelling. b. Take ASPIRIN 325 mg PO BID x4 weeks.. This is your blood thinner. B. There are a few signs you need to watch for after you are home. Call [facility] at [phone] if you experience any of the following: a. If you have a temperature of 101 degrees or higher. b. Sudden increase in pain in your hip not relieved by rest or pain medication. c. Any fluid or drainage from the incision; redness of the incision. d. Shortness of breath or chest pain. C. Call your physician if: a. Temperature is greater than 101 degrees (F). b. Pain is not relieved by prescribed pain medications. c. Increase drainage or redness from incision. d. Unanswered questions or concerns. D. Pain Medication: a. You will be prescribed pain medication upon discharge that should last till your first post-operative appointment. b. If you experience nausea and/or skin rash, discontinue this medication and contact our office for an alternative medication. c. Caution- narcotic pain medication can cause constipation. FOLLOW UP VISIT: Please call [facility] at [phone] to schedule a follow up appointment 10-14 days from the date of your surgery date. Pending Studies at Discharge: No Stand-Alone Forms: My [facility] Skilled Items Patient informed of condition?: Yes DNR: No Discharge Level of Care: Acute rehab Communicable Disease: No Discharge Prognosis: Improving Urinary Catheter: No Medications and DC Order Prescriptions: New cyclobenzaprine 10 mg Tablet 10 mg PO TID Qty: 60 0RF lisinopril-hydrochlorothiazide 20-12.5 mg Tablet 1 tab PO QAM Qty: 30 0RF acetaminophen [Tylenol Extra Strength] 500 mg Tablet 1,000 mg PO Q8H PRN (Reason: pain) Qty: 60 0RF aspirin 81 mg Tablet,Delayed Release (Dr/Ec) 81 mg PO BID Qty: 60 0RF naloxone 0.4 mg/mL Solution 0.1 mg IV UD PRN (Reason: opioid reversal) Qty: 10 0RF oxycodone 5 mg Tablet 5 - 10 mg PO Q4H PRN (Reason: pain) Qty: 30 0RF lidocaine 5 % Adhesive Patch,Medicated 1 patch transdermal QAM Qty: 15 0RF Continued lutein 20 mg capsule 20 mg PO DAILY multivitamin [Daily Multi-Vitamin] tablet 1 tab PO DAILY vitamin B complex tablet 1 tab PO DAILY ascorbic acid (vitamin C) [Vitamin C] 500 mg tablet 500 mg PO DAILY cholecalciferol (vitamin D3) 1,000 unit capsule 1,000 units PO DAILY alprazolam 0.25 mg tablet 0.25 mg PO DAILY PRN (Reason: anxiety) Qty: 30 0RF vitamin E (dl, acetate) 400 unit capsule 400 units PO DAILY meclizine 25 mg tablet 25 mg PO Q6H PRN (Reason: dizziness) lisinopril-hydrochlorothiazide 20-12.5 mg tablet 1 tab PO DAILY Qty: 90 3RF levothyroxine 75 mcg tablet 75 mcg PO DAILY Qty: 90 3RF atorvastatin 40 mg tablet 40 mg PO QPM Qty: 90 3RF Discharge Orders: Discharge Order (Routine); Ordered 07/19/22 Ordered By: Loraine Camarillo/Other Patient Handouts: Hip Fx Surg Dc Admission Data Admit Date/Time: 07/14/22 15:35 Attending Provider: Pepe Madden Admit Provider: Rajinder Todd Primary Care Provider: Ashly Tello Other Providers: [facility] ; [facility] ; Rajinder Todd ; Neil Valdez Coding Level of Care Code HOSP INP/OBS DISCH >30 MIN Diagnoses Closed fracture of left hip S72.002A Encounter type: initial encounter Hypothyroidism E03.9 Hypercholesterolemia E78.00 Hypertension I10 Hypertension type: primary hypertension Benign paroxysmal positional vertigo H81.10 ABLA (acute blood loss anemia) D62 Time Spent (min) 35
== END 2022-07-19 13:59 | DRG 481 ==
LOC: ED 12:50 → SUATTDRO 15:35 → 3W 15:35 → 2N 07-15 20:50
DX: E03.9 Hypothyroidism, unspecified; F17.210 Nicotine dependence, cigarettes, uncomplicated; M81.0 Age-related osteoporosis without current pathological fracture; W00.0XXA Fall on same level due to ice and snow, initial encounter; E78.00 Pure hypercholesterolemia, unspecified; N18.32 Chronic kidney disease, stage 3b; Z88.2 Allergy status to sulfonamides; S72.142A Displaced intertrochanteric fracture of left femur, initial encounter for closed fracture; I12.9 Hypertensive chronic kidney disease with stage 1 through stage 4 chronic kidney disease, or unspecified chronic kidney disease; Y92.481 Parking lot as the place of occurrence of the external cause; D62 Acute posthemorrhagic anemia; Z79.890 Hormone replacement therapy; H81.10 Benign paroxysmal vertigo, unspecified ear